=== PATIENT | female | born 1975 | race Caucasian/White ===

== ENCOUNTER 2017-08-27 00:19 | Emergency (ER) | payer MEDICAID ==
[2015-11-09 13:29] VITALS: Wt 71.2 kg
[~2017-08-27 00:19] MED LIST: ADV100/50 INH; ADV250/50 INH; ADVAIR INHALER IH; ALB0.5 INH; ALB17R INH; ALBU8.5H IH; ALBU8.5H11 INH; ALP5 PO; AMLO-101 PO; AMLO-98 PO; AZI250 PO; AZIT500T47 PO; BACDS PO; BENZ-23 PO; CEFU250 PO; CEFU500T10 PO; CELE-1 PO; CEP500 PO; CEPH500C24 PO; CIP500 PO; CIPR-214 PO; CIPR-326 PO; CIPR-344 PO; CIPR-345 PO; CIT20 PO; CITA-141 PO; CLI150 PO; CLIN300C99 PO; CYC10 PO; CYCL-277 PO; CYCL10TA29 PO; DAR100 PO; DIA5 PO; DIAZ-1 PO; DIAZ-308 PO; DICL-195 PO; DOXY150T6 PO; DOXY50SY2 PO; DULO30CA35 PO; ERYT400T73 PO; ESTR1 PO; ESTR1PAT TD; ESZ2 PO; ESZ3PT PO; FAMO20TA28 PO; FURO20TA19 PO; GAB300 PO; HYD2 PO; HYDR-3087 PO; HYDR-318 PO; HYDR-4305 PO; HYDR-4309 PO; HYDR1TAB PO; HYDR2TAB41 PO; HYDR473S4 PO; KET10 PO; LEVO-85 PO; LEVO750T25 PO; LIS5 PO; LISI-347 PO; LISI-355 PO; LISI-362 PO; LISI20TA29 PO; LOR1 PO; LOR10/325 PO; LOR5 PO; LOR5/325 PO; LOR75 PO; MEP50 PO; MEPE50TA29 PO; MEPE50TA32 PO; MET1I IV; METH-543 PO; METHO500 PO; MOME8.8H2 IH; MORIR15 PO; MORPHINE; NAPR-733 PO; NEB5 PO; NEBI5TAB PO; NONE NOW; NOR10 PO; NOR10/325 PO; NOR25 PO; NOR5/325 PO; NOR75/325 PO; ONDA4TAB PO; OXY10 PO; OXYC-375; OXYC-375 PO; OXYC-689 PO; OXYC-717 PO; OXYC-823 PO; OXYC-830; OXYC-865 PO; OXYC-870 PO; OXYC20TA77 PO; OXYC20TA99 PO; OXYC40TA PO; OXYC40TA53 PO; OXYC40TA57 PO; OXYC5TAB38 PO; OXYGEN INH; OXYIR PO; PAIN PILL PO; PAN40 PO; PANT40TA65; PANT40TA65 PO; PER PO; PHEN-530 PO; PHEN120S16 PO; PHEN240S3 PO; PHENA200 PO; POTA-28 PO; PRA20 PO; PRAV10TA45 PO; PRAV20TA66 PO; PRE10 PO; PRE20 PO; PRED20TA6 PO; PREG100C44; PREG100C44 PO; PREG100C45; PREG150C33 PO; PREG50CA48 PO; PRO25 PO; PROAIRPT IH; PROM-110 PO; RAN150 PO; ROBC PO; SILV50CR43 TP; TRA50 PO; TRAM-420 PO; TRAM-627 PO; TRAZ-156 PO; TRAZ150T8 PO; TREXIMET; VILA10TA PO; VILA20TA PO; ZOL5 PO; [UNRECOGNIZED DRUG - CODE] PO; [UNRECOGNIZED DRUG - OTHER] PO; [UNRECOGNIZED DRUG - REMARK]
--- NOTE | 2017-08-27 00:28 | ER Report ---
History and Physical Time Seen By MD: 00:27 HPI/ROS CHIEF COMPLAINT: cough HISTORY OF PRESENT ILLNESS: This is a 42 year old female. She has a cough for about 1 weeks time now. She has pain in the chest when she coughs. Has some sore throat pain as well. Productive cough with sputum. Concerned about pneumonia or bronchitis. Multiple family members have been ill as well. No nausea or vomiting. Less appetite, but still eating and drinking. Body aches and pains. Some subjective fevers/chills. Allergies: Coded Allergies: acetaminophen (Verified Allergy, Severe, 08/27/17) kidney and liver failure amoxicillin (Verified Allergy, Intermediate, HIVES, 08/27/17) ibuprofen (Verified Allergy, Intermediate, HIVES, 08/27/17) latex (Verified Allergy, Intermediate, WELTS, 08/27/17) sulfamethoxazole (Verified Allergy, Mild, 08/27/17) trimethoprim (Verified Allergy, Mild, 08/27/17) Penicillins (Verified Allergy, Unknown, 08/27/17) Uncoded Allergies: ALLERGIC TO ANY TOPICAL PATCHES (Allergy, Intermediate, WELTS, 09/01/10) TAPE (Allergy, Mild, 09/01/10) Home Meds Active Scripts Benzonatate 100 Mg Cap (TESSALON PERLE 100 MG CAP) 100 Mg Capsule, 100 MG PO TID , #20 CAP 0 Refills Prov:KWAME DIAMOND MD 08/27/17 Doxycycline Hyclate (DOXYCYCLINE HYCLATE) 100 Mg Capsule, 100 MG PO BID, #20 CAPSULE 0 Refills Prov:KWAME DIAMOND MD 08/27/17 Methocarbamol (ROBAXIN-750) 750 Mg Tablet, 750 MG PO TID Y for MUSCLE SPASMS, # 30 TAB 0 Refills Prov:KWAME DIAMOND MD 12/05/16 Pregabalin (LYRICA) 50 Mg Capsule, 50 MG PO TID, #90 CAPSULE Prov:RADHA HACKETT MD 01/27/16 Reported Medications Pantoprazole Sodium (PANTOPRAZOLE SODIUM) 40 Mg Tablet.dr, 40 MG PO QDAY, TAB.SR 10/30/16 Furosemide (LASIX) 20 Mg Tablet, 1 TAB PO DAILY, TAB 10/30/16 Vilazodone Hydrochloride (VIIBRYD) 20 Mg Tablet, 40 MG PO DAILY 10/06/16 Eszopiclone (LUNESTA) 3 Mg Tablet, 3 MG PO QHS 10/06/16 Lisinopril (LISINOPRIL) 20 Mg Tablet, 20 MG PO QDAY, TAB 10/06/16 Nebivolol Hcl (BYSTOLIC) 5 Mg Tablet, 5 MG PO QDAY Take one tablet at noon each day. 11/11/15 Amlodipine Besylate (Amlodipine Besylate) 10 Mg Tablet, 1 TAB PO QHS, 0 Refills 03/26/12 Discontinued Scripts Ciprofloxacin Hcl (CIPROFLOXACIN HCL) 500 Mg Tablet, 500 MG PO Q12H, #10 TAB Prov:THIERRYLAMAR DONIS Dayanna GARCIA 03/14/17 Reviewed Nurses Notes: Yes Hx Smoking: Yes (13PPD) Smoking Status: Current: Every Day Smoker Exposure to Second Hand Smoke?: Yes Hx Substance Use Disorder: No Hx Alcohol Use: No Constitutional Vital Sign - Last 24 Hours 08/27/17 08/27/17 08/27/17 00:22 00:34 00:42 Temp 98.2 Pulse 72 69 Resp 14 B/P (MAP) 153/88 (109) 153/88 Pulse Ox 91 89 O2 Delivery Room Air Physical Exam General Appearance: The patient is alert, has no immediate need for airway protection and no current signs of toxicity. Eyes: Pupils equal and round no injection. ENT: Normal oral mucosa. Moist mucous membranes. Posterior oropharynx with erythema, but no exudates. Nasal mucosa with edema and erythema. Tympanic membranes are normal. Neck: Neck is supple and some tenderness right submandibular area, non lymphadenopathy noted. Respiratory: Chest is non tender, lungs are clear to auscultation. Cardiac: regular rate and rhythm Gastrointestinal: Abdomen is soft and non tender, no masses, bowel sounds normal. Musculoskeletal: Extremities have full range of motion. Skin: No rashes or lesions. DIFFERENTIAL DIAGNOSIS: After history and physical exam differential diagnosis was considered for cough with some shortness of breath, concerning for pulmonary infectious process versus viral upper rest or infection or influenza Medical Decision Making Data Points Result Diagram: 08/27/17 0045 08/27/17 0045 Laboratory Hematology Test 08/27/17 00:45 Red Blood Count 4.96 M/uL (4.17-5.56) Mean Corpuscular Volume 88.5 fL (80.0-96.0) Mean Corpuscular Hemoglobin 30.1 pg (26.0-33.0) Mean Corpuscular Hemoglobin Concent 34.1 g/dL (32.0-36.0) Red Cell Distribution Width 15.1 % (11.5-14.5) Mean Platelet Volume 8.7 fL (7.2-11.1) Neutrophils (%) (Auto) 57.6 % (39.4-72.5) Lymphocytes (%) (Auto) 27.6 % (17.6-49.6) Monocytes (%) (Auto) 9.6 % (4.1-12.4) Eosinophils (%) (Auto) 3.8 % (0.4-6.7) Basophils (%) (Auto) 1.4 % (0.3-1.4) Nucleated RBC Relative Count (auto) 0.0 /100WBC Neutrophils # (Auto) 3.8 K/uL (2.0-7.4) Lymphocytes # (Auto) 1.8 K/uL (1.3-3.6) Monocytes # (Auto) 0.6 K/uL (0.3-1.0) Eosinophils # (Auto) 0.2 K/uL (0.0-0.5) Basophils # (Auto) 0.1 K/uL (0.0-0.1) Nucleated RBC Absolute Count (auto) 0.00 K/uL Sodium Level 139 mmol/L (137-145) Potassium Level 3.6 mmol/L (3.5-5.0) Chloride Level 103 mmol/L (98-107) Carbon Dioxide Level 27 mmol/L (22-31) Blood Urea Nitrogen 8 mg/dl (7-18) Creatinine 0.90 mg/dl (0.52-1.04) Glomerular Filtration Rate Calc > 60.0 Random Glucose 90 mg/dl (75-110) Calcium Level 9.4 mg/dl (8.4-10.2) Total Bilirubin 0.3 mg/dl (0.2-1.3) Aspartate Amino Transf (AST/SGOT) 31 U/L (0-35) Alanine Aminotransferase (ALT/SGPT) 84 U/L (0-56) Alkaline Phosphatase 207 U/L (0-126) C-Reactive Protein 1.5 mg/dl (<1.0) Total Protein 7.6 gm/dl (6.3-8.2) Albumin 3.8 g/dl (3.5-5.0) Influenza Virus Type A (PCR) Negative (NEGATIVE) Influenza Virus Type B (PCR) Negative (NEGATIVE) Chemistry Test 08/27/17 00:45 White Blood Count 6.6 k/uL (4.5-11.0) Red Blood Count 4.96 M/uL (4.17-5.56) Hemoglobin 14.9 g/dL (12.0-16.0) Hematocrit 43.9 % (34.0-47.0) Mean Corpuscular Volume 88.5 fL (80.0-96.0) Mean Corpuscular Hemoglobin 30.1 pg (26.0-33.0) Mean Corpuscular Hemoglobin Concent 34.1 g/dL (32.0-36.0) Red Cell Distribution Width 15.1 % (11.5-14.5) Platelet Count 213 K/uL (150-450) Mean Platelet Volume 8.7 fL (7.2-11.1) Neutrophils (%) (Auto) 57.6 % (39.4-72.5) Lymphocytes (%) (Auto) 27.6 % (17.6-49.6) Monocytes (%) (Auto) 9.6 % (4.1-12.4) Eosinophils (%) (Auto) 3.8 % (0.4-6.7) Basophils (%) (Auto) 1.4 % (0.3-1.4) Nucleated RBC Relative Count (auto) 0.0 /100WBC Neutrophils # (Auto) 3.8 K/uL (2.0-7.4) Lymphocytes # (Auto) 1.8 K/uL (1.3-3.6) Monocytes # (Auto) 0.6 K/uL (0.3-1.0) Eosinophils # (Auto) 0.2 K/uL (0.0-0.5) Basophils # (Auto) 0.1 K/uL (0.0-0.1) Nucleated RBC Absolute Count (auto) 0.00 K/uL Glomerular Filtration Rate Calc > 60.0 Calcium Level 9.4 mg/dl (8.4-10.2) Total Bilirubin 0.3 mg/dl (0.2-1.3) Aspartate Amino Transf (AST/SGOT) 31 U/L (0-35) Alanine Aminotransferase (ALT/SGPT) 84 U/L (0-56) Alkaline Phosphatase 207 U/L (0-126) C-Reactive Protein 1.5 mg/dl (<1.0) Total Protein 7.6 gm/dl (6.3-8.2) Albumin 3.8 g/dl (3.5-5.0) Influenza Virus Type A (PCR) Negative (NEGATIVE) Influenza Virus Type B (PCR) Negative (NEGATIVE) EKG/Imaging Imaging CHEST PA AND LATERAL 08/27/2017 1:19 AM. INDICATION: Cough. COMPARISON: 10/07/2016. FINDINGS: Lungs are well-expanded. Mild diffuse bronchial wall thickening, likely at least partially chronic. No focal consolidation. No pneumothorax or pleural effusion. Pulmonary vasculature is unremarkable. Heart size is normal. Unchanged compression deformities in the lower thoracic spine with associated severe kyphosis. Cholecystectomy clips noted. IMPRESSION: Mild airways disease, likely at least partially chronic, though an acute infectious or inflammatory component is not excluded. Report Dictated By: Rodger Burnett MD at 08/27/2017 1:34 AM ED Course/Re-evaluation Clinical Indication for ER IV: IV Access ED Course Imaging with changes consistent with early community acquired pneumonia. Had some desaturation while sleeping, down to 86% on room air. Will start on Doxycycline. Naproxen given for headache. Prescribed benzonatate for cough. Decision to Disposition Date: Aug 27, 2017 Decision to Disposition Time: 02:02 Depart Departure Latest Vital Signs Vital Signs Date Time Temp Pulse Resp B/P (MAP) Pulse Ox O2 Delivery O2 Flow Rate FiO2 08/27/17 00:42 98.2 69 14 153/88 89 Room Air Impression: Primary Impression: Community acquired pneumonia Condition: Improved Disposition: HOME OR SELF-CARE Referrals: MARTIN BAUMANN DO (PCP) New Scripts Benzonatate 100 Mg Cap (TESSALON PERLE 100 MG CAP) 100 Mg Capsule 100 MG PO TID, #20 CAP 0 Refills Prov: KWAME DIAMOND MD 08/27/17 Doxycycline Hyclate (DOXYCYCLINE HYCLATE) 100 Mg Capsule 100 MG PO BID, #20 CAPSULE 0 Refills Prov: KWAME DIAMOND MD 08/27/17 Departure Forms: Home Oxygen, Nebulizer RX Durable Medical Equipment- Oxygen: Oxygen Concentrator, Portable Oxygen Gas Reason for Use/Diagnosis: pneumonia Start Date of the Order: Aug 27, 2017 Dosage or Concentration (if applicable) - LPM: 2 Route of Administration (if applicable): Nasal Cannula Frequency of Use: While Sleeping Duration Home O2 Required: 3 Duration Units: Weeks Room Air Oxygen Saturation: 86 ER Prescribing Physician's Name: Kwame Diamond NPI Numbers for Local ER MDs: Nella [id number] Patient Instructions: Community Acquired Pneumonia (ED) Additional Instructions: Take the antibiotic Doxycycline 100mg twice a day for 10 days. Take the medication Benzonatate 100mg every 8 hours as needed for cough. Oxygen at 2 liters by nasal canula while sleeping. See Dr. Baumann to discuss prescriptions for further oxygen treatment beyond the need while treating your pneumonia. Problem Qualifiers Primary Impression: Community acquired pneumonia Laterality: unspecified laterality Qualified Codes: J18.9 - Pneumonia, unspecified organism KWAME DIAMOND MD Aug 27, 2017 00:28
[2017-08-27] MEDS ORDERED: NS(*) 0.9% 1000 ML BAG 1,000 ML IV ONE (00:35)
[2017-08-27 00:42] VITALS: BP 153/88
[2017-08-27 01:05] LABS: PLATELET COUNT, AUTOMATED 213 K/uL (150-450)
--- NOTE | 2017-08-27 01:41 | RADIOLOGY IMAGING REPORT ---
FACILITY: [facility] PATIENT NAME: Madhuri Mckeon : 1975 MR: [id number] V: [id number] EXAM DATE: ORDERING PHYSICIAN: LOIS DIAMOND TECHNOLOGIST: Location: [facility] - [place] Patient: Madhuri Mckeon : 1975 Visit/Account:[id number] Date of Sevice: 08/27/2017 CHEST PA AND LATERAL 08/27/2017 1:19 AM. INDICATION: Cough. COMPARISON: 10/07/2016. FINDINGS: Lungs are well-expanded. Mild diffuse bronchial wall thickening, likely at least partially chronic. No focal consolidation. No pneumothorax or pleural effusion. Pulmonary vasculature is un remarkable. Heart size is normal. Unchanged compression deformities in the lower thoracic spine wit h associated severe kyphosis. Cholecystectomy clips noted. IMPRESSION: Mild airways disease, likely at least partially chronic, though an acute infectious or in flammatory component is not excluded. Report Dictated By: Rodger Burnett MD at 08/27/2017 1:34 AM Report E-Signed By: Rodger Burnett MD at 08/27/2017 1:37 AM WSN:[id number]
[2017-08-27] MEDS ORDERED: BENZ100C4 PO (02:03)
[2017-08-27] MEDS ORDERED: DOXY-181 PO (02:03)
[2017-08-27] MEDS ORDERED: DOXYCYCLINE HYCL 100 MG TAB TH PO ONE (02:05)
[2017-08-27] MEDS ORDERED: BENZONATATE 100 MG CAP PO ONE (02:05)
[2017-08-27] MEDS ORDERED: NAPROXEN 500 MG TAB PO ONE (02:15)
== END 2017-08-27 03:15 | disposition home or self-care (01) ==
LOC: ER 00:26
DX: J18.9 Pneumonia, unspecified organism (principal)
CPT/HCPCS: 71046; 85025; 86140; 87502; 96360; 96361; 99284; J7030; 82040; 82247; 82310; 82374; 82435; 82565; 82947; 84075; 84132; 84155; 84295; 84450; 84460; 84520

== ENCOUNTER → 2017-10-12 | Outpatient (CLI) | payer MEDICAID ==
[2015-11-09 13:29] VITALS: BMI 30.5
[~2017-10-12] MED LIST changes: +BENZ100C4 PO; +DOXY-181 PO
--- NOTE | 2017-10-12 14:55 | RADIOLOGY IMAGING REPORT ---
[place] [facility] [place]IENT NAME: Madhuri Mckeon : 1975 MR: [id number] V: [id number] EXAM DATE: ORDERING PHYSICIAN: MARTIN BAUAMNN TECHNOLOGIST: Location: [facility] Patient: Madhuri Mckeon : 1975 Visit/Account:[id number] Date of Sevice: 10/12/2017 Exam type: FOOT 2 VIEW LEFT History: Injury two months ago Comparison: November 14, 2016. Findings: There is a tiny radiopaque foreign body projecting just medial to the distal tuft of the distal phala nx of the left great toe. This is seen on the lateral view and appears to be external to the skin. There is no evidence of acute fracture or dislocation. IMPRESSION: 1. No acute osteoarticular abnormality the left foot is seen Report Dictated By: Alysha Peng MD at 10/12/2017 2:48 PM Report E-Signed By: Alysha Peng MD at 10/12/2017 2:52 PM WSN:[email or web address]
== END ==
LOC: RAD 13:44
PROVIDERS: ATTEND Family Medicine
DX: M79.672 Pain in left foot (principal)

== ENCOUNTER → 2017-11-10 | Outpatient (CLI) | payer MEDICAID ==
[2015-11-09 13:29] VITALS: BMI 30.5
[~2017-11-10] MED LIST changes: -OXYC-375; -OXYC-375 PO; +OXYC1TAB78; +OXYC1TAB78 PO
--- NOTE | 2017-11-10 11:24 | RADIOLOGY IMAGING REPORT ---
[place] [facility] [place]: Madhuri Mckeon : 1975 MR: [id number] V: [id number] EXAM DATE: ORDERING PHYSICIAN: MARTIN BAUMANN TECHNOLOGIST: Location: [facility] [place] Patient: Madhuri Mckeon : 1975 Visit/Account:[id number] Date of Sevice: 11/10/2017 ABD SINGLE ORGAN/QUAD/FOLLOWUP, bladder ultrasound HISTORY: Urinary incontinence, right flank pain COMPARISON: None. FINDINGS: The urinary bladder prevoid volume was 100 mL. The post void residual was 34 mL. Bilateral ureteral jets were present. IMPRESSION: Post void bladder residual 34 mL Report Dictated By: Alysha Peng MD at 11/10/2017 11:19 AM Report E-Signed By: Alysha Peng MD at 11/10/2017 11:21 AM WSN:[email or web address]
== END ==
LOC: US 01:39
PROVIDERS: ATTEND Family Medicine
DX: R39.14 Feeling of incomplete bladder emptying (principal)
CPT/HCPCS: 76705

== ENCOUNTER → 2018-01-03 | Outpatient (CLI) | payer MEDICAID ==
[2015-11-09 13:29] VITALS: BMI 30.5
--- NOTE | 2018-01-03 13:08 | RADIOLOGY IMAGING REPORT ---
[place] [facility] [place]IENT NAME: Madhuri Mckeon : 1975 MR: [id number] V: [id number] EXAM DATE: ORDERING PHYSICIAN: LUIS ANTONIO LOFTON TECHNOLOGIST: Location: [facility] Patient: Madhuri Mckeon : 1975 Visit/Account:[id number] Date of Sevice: 01/03/2018 US SINGLE ORGAN HISTORY: Inability to empty bladder COMPARISON: None. FINDINGS: The urinary bladder prevoid volume was 328 mL. The post void residual was 36 mL. Bilateral ureteral jets are present IMPRESSION: 36 mL post void bladder residual Report Dictated By: Alysha Peng MD at 01/03/2018 1:04 PM Report E-Signed By: Alysha Peng MD at 01/03/2018 1:05 PM WSN:[email or web address]
== END ==
LOC: US 11:54
DX: R39.14 Feeling of incomplete bladder emptying (principal)
CPT/HCPCS: 76705

== ENCOUNTER 2018-01-10 11:19 | Emergency (ER) | payer MEDICAID ==
[2015-11-09 13:29] VITALS: Wt 84.4 kg
[~2018-01-10 11:19] MED LIST changes: -TRAZ-156 PO; +TRAZ50TA34 PO
[2018-01-10] MEDS ORDERED: PREG100C44 PO (11:25)
[2018-01-10] MEDS ORDERED: FURO-45 PO (11:25)
--- NOTE | 2018-01-10 11:31 | ER Report ---
History and Physical Time Seen By MD: 11:30 Hx. of Stated Complaint: PT REPORTS L WRIST PAIN HPI/ROS CHIEF COMPLAINT: Left wrist pain HISTORY OF PRESENT ILLNESS: This is a 42-year-old female presents to the emergency department for left wrist pain. Patient states that she tripped and fell backwards over her dog with her left arm outstretched injuring her left wrist. Patient states that she can barely move her wrists, significant pain to the radial side of the wrist up into the forearm. No elbow or shoulder involvement. CMS intact distal to the injury. REVIEW OF SYSTEMS: Respiratory: No cough, no dyspnea. Cardiovascular: No chest pain, no palpitations. Gastrointestinal: No vomiting, no abdominal pain. Musculoskeletal: As above. Allergies: Coded Allergies: acetaminophen (Verified Allergy, Severe, 01/10/18) kidney and liver failure amoxicillin (Verified Allergy, Intermediate, HIVES, 01/10/18) ibuprofen (Verified Allergy, Intermediate, HIVES, 01/10/18) latex (Verified Allergy, Intermediate, WELTS, 01/10/18) sulfamethoxazole (Verified Allergy, Mild, 01/10/18) trimethoprim (Verified Allergy, Mild, 01/10/18) Penicillins (Verified Allergy, Unknown, 01/10/18) Uncoded Allergies: ALLERGIC TO ANY TOPICAL PATCHES (Allergy, Intermediate, WELTS, 09/01/10) TAPE (Allergy, Mild, 09/01/10) Home Meds Active Scripts Metaxalone (SKELAXIN) 800 Mg Tablet, 800 MG PO PRN, #12 TAB Prov:LUCRETIA WHYTE TRUST MANAGER ASSISTANT-BC 01/10/18 Methocarbamol (ROBAXIN-750) 750 Mg Tablet, 750 MG PO TID Y for MUSCLE SPASMS, # 30 TAB 0 Refills Prov:LOIS DIAMOND MD 12/05/16 Reported Medications Furosemide (FUROSEMIDE) 20 Mg Tablet, 1 TAB PO Q8H, TAB 01/10/18 Pregabalin (LYRICA) 100 Mg Capsule, 100 MG PO TID, CAPSULE 01/10/18 Pantoprazole Sodium (PANTOPRAZOLE SODIUM) 40 Mg Tablet.dr, 40 MG PO QDAY, TAB.SR 10/30/16 Vilazodone Hydrochloride (VIIBRYD) 20 Mg Tablet, 40 MG PO DAILY 10/06/16 Eszopiclone (LUNESTA) 3 Mg Tablet, 3 MG PO QHS 10/06/16 Lisinopril (LISINOPRIL) 20 Mg Tablet, 20 MG PO QDAY, TAB 10/06/16 Nebivolol Hcl (BYSTOLIC) 5 Mg Tablet, 5 MG PO QDAY Take one tablet at noon each day. 11/11/15 Amlodipine Besylate (Amlodipine Besylate) 10 Mg Tablet, 1 TAB PO QHS, 0 Refills 03/26/12 Discontinued Reported Medications Furosemide (LASIX) 20 Mg Tablet, 1 TAB PO DAILY, TAB 10/30/16 Discontinued Scripts Benzonatate 100 Mg Cap (TESSALON PERLE 100 MG CAP) 100 Mg Capsule, 100 MG PO TID , #20 CAP 0 Refills Prov:LOIS DIAMOND MD 08/27/17 Doxycycline Hyclate (DOXYCYCLINE HYCLATE) 100 Mg Capsule, 100 MG PO BID, #20 CAPSULE 0 Refills Prov:LOIS DIAMOND MD 08/27/17 Pregabalin (LYRICA) 50 Mg Capsule, 50 MG PO TID, #90 CAPSULE Prov:RADHA HACKETT MD 01/27/16 Past Medical/Surgical History Patient has a past medical and surgical history of migraines, "chronic tachycardia", angina, hypertension, hypercholesterolemia, asthma, pneumonia, GERD, cervical cancer with excision, urinary tract infections, bursitis, fibromyalgia, arthritis, multiple fractures, has full dentures, wears contacts and glasses, depression, anxiety, basal cell skin cancer excision, tubal ligation, multiple orthopedic surgeries. Reviewed Nurses Notes: Yes Hx Smoking: Yes (1/3PPD) Smoking Status: Current: Every Day Smoker Exposure to Second Hand Smoke?: Yes Hx Substance Use Disorder: No Hx Alcohol Use: No Constitutional Vital Sign - Last 24 Hours 01/10/18 01/10/18 01/10/18 11:23 11:25 13:05 Temp 98.0 Pulse 87 87 Resp 16 B/P (MAP) 122/67 (85) 122/67 115/76 (89) Pulse Ox 100 93 O2 Delivery Room Air Physical Exam General Appearance: The patient is alert, has no immediate need for airway protection and no current signs of toxicity. Eyes: Pupils equal and round no injection. Respiratory: Chest is non tender, lungs are clear to auscultation. Cardiac: regular rate and rhythm. Gastrointestinal: Abdomen is soft and non tender, no masses, bowel sounds normal. Musculoskeletal: Neck: Neck is supple and non tender. Extremities pain to the left forearm, left wrist and hand with light palpation. CMS intact distal to the injury. No deformities, crepitus or dislocations. Skin: No rashes or lesions. DIFFERENTIAL DIAGNOSIS: After history and physical exam differential diagnosis was considered for dislocation, fracture and contusion. Medical Decision Making EKG/Imaging Imaging Location: [facility] [place] Patient: Madhuri Mckeon : 1975 Visit/Account:[id number] Date of Sevice: 01/10/2018 EXAMINATION: Left wrist radiographs 3 views HISTORY: Fall last night. Pain to forearm and wrist. COMPARISON: None. FINDINGS: PA, lateral and oblique views of the left wrist are obtained. Bones: Slightly impacted acute transverse fracture in the distal left radial metaphysis. Joint spaces: Negative. Hardware: None. Soft tissues: Mild soft tissue swelling about the distal forearm/wrist. IMPRESSION: Acute fracture of the distal left radial metaphysis. Report Dictated By: David Lawler MD at 01/10/2018 12:18 PM Report E-Signed By: David Lawler MD at 01/10/2018 12:20 PM WSN:[id number] Location: [facility] [place] Patient: Madhuri Mckeon : 1975 Visit/Account:[id number] Date of : 01/10/2018 EXAMINATION: Left forearm radiographs 2 views HISTORY: Pain to forearm and wrist from fall. COMPARISON: None. FINDINGS: AP and lateral views of the left forearm are obtained. Bones: Acute transverse fracture of the distal metaphysis of the radius. Joint spaces: Negative. Hardware: None. Soft tissues: Mild soft tissue swelling at the distal forearm/wrist. IMPRESSION: Acute fracture of the metaphysis of the distal left radius. Report Dictated By: David Lawler MD at 01/10/2018 12:21 PM Report E-Signed By: David Lawler MD at 01/10/2018 12:23 PM WSN:[id number] ED Course/Re-evaluation ED Course The patient was mid to room. A history and physical were obtained. Differential diagnoses were considered. An x-ray of the left forearm and left wrist were obtained. X-ray showing acute fracture of the distal radius, nondisplaced. Patient was placed in an Ortho-Glass splint given a sling a prescription for Skelaxin one naproxen in the ER at her request, and instructed to follow-up with [facility] within 5 days. Patient had no other questions or concerns at this time and discharged home. Decision to Disposition Date: Jan 10, 2018 Decision to Disposition Time: 12:59 Depart Departure Latest Vital Signs Vital Signs Date Time Temp Pulse Resp B/P (MAP) Pulse Ox O2 Delivery O2 Flow Rate FiO2 01/10/18 13:05 87 115/76 (89) 93 01/10/18 11:25 98.0 16 Room Air Impression: Primary Impression: Fracture of left wrist Condition: Improved Disposition: HOME OR SELF-CARE Referrals: MARTIN BAUMANN DO (PCP) [facility] 5 Days New Scripts Metaxalone (SKELAXIN) 800 Mg Tablet 800 MG PO PRN, #12 TAB Prov: LUCRETIA WHYTE-BAL 01/10/18 Patient Instructions: Wrist Fracture in Adults (ED) Additional Instructions: Drink plenty of water. Get plenty of rest. Keep the splint on until he follows with [facility]. Used a sling for comfort. Apply ice every 2-3 hours, 5-6 times a day for approximately 20 minutes at a time. Keep the arm elevated this will help with pain. Continue taking her current medications. Take the Skelaxin as directed. Return to the ER for any other concerns or worsening symptoms. Problem Qualifiers Primary Impression: Fracture of left wrist Encounter type: initial encounter Fracture type: closed Qualified Codes: S62.102A - Fracture of unspecified carpal bone, left wrist, initial encounter for closed fracture LUCRETIA WHYTE-BAL Jan 10, 2018 11:31
--- NOTE | 2018-01-10 12:25 | RADIOLOGY IMAGING REPORT ---
FACILITY: [facility] PATIENT NAME: Madhuri Mckeon : 1975 MR: [id number] V: [id number] EXAM DATE: ORDERING PHYSICIAN: LUCRETIA WHYTE TECHNOLOGIST: Location: [facility] - [place] Patient: Madhuri Mckeon : 1975 Visit/Account:[id number] Date of Sevice: 01/10/2018 EXAMINATION: Left wrist radiographs 3 views HISTORY: Fall last night. Pain to forearm and wrist. COMPARISON: None. FINDINGS: PA, lateral and oblique views of the left wrist are obtained. Bones: Slightly impacted acute transverse fracture in the distal left radial metaphysis. Joint spaces: Negative. Hardware: None. Soft tissues: Mild soft tissue swelling about the distal forearm/wrist. IMPRESSION: Acute fracture of the distal left radial metaphysis. Report Dictated By: David Lawler MD at 01/10/2018 12:18 PM Report E-Signed By: David Lawler MD at 01/10/2018 12:20 PM WSN:[id number]
--- NOTE | 2018-01-10 12:28 | RADIOLOGY IMAGING REPORT ---
FACILITY: [facility] - [place] PATIENT NAME: Madhuri Mckeon : 1975 MR: [id number] V: [id number] EXAM DATE: ORDERING PHYSICIAN: LUCRETIA WHYTE TECHNOLOGIST: Location: [facility] Patient: Madhuri Mckeon : 1975 Visit/Account:[id number] Date of Sevice: 01/10/2018 EXAMINATION: Left forearm radiographs 2 views HISTORY: Pain to forearm and wrist from fall. COMPARISON: None. FINDINGS: AP and lateral views of the left forearm are obtained. Bones: Acute transverse fracture of the distal metaphysis of the radius. Joint spaces: Negative. Hardware: None. Soft tissues: Mild soft tissue swelling at the distal forearm/wrist. IMPRESSION: Acute fracture of the metaphysis of the distal left radius. Report Dictated By: David Lawler MD at 01/10/2018 12:21 PM Report E-Signed By: David Lawler MD at 01/10/2018 12:23 PM WSN:[id number]
[2018-01-10] MEDS ORDERED: META800T18 PO (12:47)
[2018-01-10] MEDS ORDERED: NAPROXEN 500 MG TAB PO ONE (13:00)
[2018-01-10 13:05] VITALS: BP 115/76
== END 2018-01-10 13:19 | disposition home or self-care (01) ==
LOC: ER 11:34
DX: S52.502A Unspecified fracture of the lower end of left radius, initial encounter for closed fracture (principal); W01.0XXA Fall on same level from slipping, tripping and stumbling without subsequent striking against object, initial encounter
CPT/HCPCS: 29125; 73090; 73110; 99284; A4565

== ENCOUNTER → 2018-01-31 | Outpatient (CLI) | payer MEDICAID ==
[2015-11-09 13:29] VITALS: BMI 30.5
[~2018-01-31] MED LIST changes: +FURO-45 PO; +META800T18 PO
--- NOTE | 2018-01-31 15:22 | RADIOLOGY IMAGING REPORT ---
FACILITY: [facility] [place] PATIENT NAME: Madhuri Mckeon : 1975 MR: [id number] V: [id number] EXAM DATE: ORDERING PHYSICIAN: MARTIN BAUMANN TECHNOLOGIST: Location: [facility] [place] Patient: Madhuri Mckeon : 1975 Visit/Account:[id number] Date of Sevice: 01/31/2018 Exam type: FOREARM LEFT History: ] Fracture of distal left radius Comparison: January 10, 2018. Findings: Again is a comminuted impacted fracture through the distal left radial metaphysis and epiphysis with extension to the articular surface. There is dorsal angulation at the fracture site that appears sli ghtly more prominent when compared to the prior study IMPRESSION: 1. Comminuted impacted fracture to the distal left radius with extension to the articular surface ag ain seen. There is dorsal angulation at the fracture site which is slightly more prominent when comp ared to the prior study Report Dictated By: Alysha Peng MD at 01/31/2018 3:15 PM Report E-Signed By: Alysha Peng MD at 01/31/2018 3:18 PM WSN:[email or web address]
== END ==
LOC: RAD 13:36
PROVIDERS: ATTEND Family Medicine
DX: S52.502A Unspecified fracture of the lower end of left radius, initial encounter for closed fracture (principal)

== ENCOUNTER 2018-02-03 10:20 | Emergency (ER) | payer MEDICAID ==
[2015-11-09 13:29] VITALS: Wt 85.7 kg
--- NOTE | 2018-02-03 12:25 | RADIOLOGY IMAGING REPORT ---
FACILITY: [facility] [place] PATIENT NAME: Madhuri Mckeon : 1975 MR: [id number] V: [id number] EXAM DATE: ORDERING PHYSICIAN: ALEXANDER CABRERA TECHNOLOGIST: [place] [facility] [place] Madhuri Mckeon : 1975 Visit/Account:[id number] Date of Sevice: 02/03/2018 WRIST LEFT 2 VIEW Indication: Wrist pain. Distal radius fracture. Comparison: 01/10/2018 Findings: 2 views of the left wrist are obtained portably. Transverse distal left radius fracture is again iden tified. There is increased impaction at the fracture site and increased dorsal inclination of the dis paulino radius articular surface when compared to the prior study. Correlate clinically. There is a suspe cted fracture component which extends into the radiocarpal joint as well. No ulnar styloid fracture s een. Carpal alignment is intact. There is soft tissue swelling about the wrist. IMPRESSION: 1. Comminuted distal left radial metaphysis fracture with increased impaction and dorsal inclination of the distal radius articular surface since 01/10/2018. 2. Soft tissue swelling. Report Dictated By: Tevin Willams at 02/03/2018 12:17 PM Report E-Signed By: Tevin Willams at 02/03/2018 12:22 PM WSN:[id number]
[2018-02-03 12:30] VITALS: BP 113/84
--- NOTE | 2018-02-03 13:03 | ER Report ---
History and Physical Time Seen By MD: 10:30 Hx. of Stated Complaint: PT PRESENTS WITH HX OF WRIST FX 01/09 WAS SEEN HERE AND SPLINTED, SECOND CAST PLACED 01/31 BTY PMD. PT NOW HAVING PAIN AND SWELLING AND HER MEDS ARE NOT WORKING HPI/ROS 42-year-old female with the chief complaint of cast discomfort in her left upper extremity. She sustained a distal radius fracture on January 10 after she tripped over her dog. The fracture has been managed by her primary care physician. She states that she has increased pain and swelling beneath the cast , and is requesting that the cast removed. She has a follow-up appointment with the local orthopedic group next week. She denies pain or numbness in her hand. She states that the pain is under the cast. She also reports that the fracture has worsened with the cast in place which is why she was referred by her primary care physician to the orthopedic surgeons. She denies any new trauma. She has no other complaints. Remainder of the 14 system rev: Yes Allergies: Coded Allergies: acetaminophen (Verified Allergy, Severe, 02/03/18) kidney and liver failure amoxicillin (Verified Allergy, Intermediate, HIVES, 02/03/18) ibuprofen (Verified Allergy, Intermediate, HIVES, 02/03/18) latex (Verified Allergy, Intermediate, WELTS, 02/03/18) sulfamethoxazole (Verified Allergy, Mild, 02/03/18) trimethoprim (Verified Allergy, Mild, 02/03/18) Penicillins (Verified Allergy, Unknown, 02/03/18) Uncoded Allergies: ALLERGIC TO ANY TOPICAL PATCHES (Allergy, Intermediate, WELTS, 09/01/10) TAPE (Allergy, Mild, 09/01/10) Home Meds Active Scripts Metaxalone (SKELAXIN) 800 Mg Tablet, 800 MG PO PRN, #12 TAB Prov:LUCRETIA WHYTE STUDENT [employer]CIAL [employer] MANAGER-BC 01/10/18 Methocarbamol (ROBAXIN-750) 750 Mg Tablet, 750 MG PO TID Y for MUSCLE SPASMS, # 30 TAB 0 Refills Prov:LOIS DIAMOND MD 12/05/16 Reported Medications Furosemide (FUROSEMIDE) 20 Mg Tablet, 1 TAB PO Q8H, TAB 01/10/18 Pregabalin (LYRICA) 100 Mg Capsule, 100 MG PO TID, CAPSULE 01/10/18 Pantoprazole Sodium (PANTOPRAZOLE SODIUM) 40 Mg Tablet.dr, 40 MG PO QDAY, TAB.SR 10/30/16 Vilazodone Hydrochloride (VIIBRYD) 20 Mg Tablet, 40 MG PO DAILY 10/06/16 Eszopiclone (LUNESTA) 3 Mg Tablet, 3 MG PO QHS 10/06/16 Lisinopril (LISINOPRIL) 20 Mg Tablet, 20 MG PO QDAY, TAB 10/06/16 Nebivolol Hcl (BYSTOLIC) 5 Mg Tablet, 5 MG PO QDAY Take one tablet at noon each day. 11/11/15 Amlodipine Besylate (Amlodipine Besylate) 10 Mg Tablet, 1 TAB PO QHS, 0 Refills 03/26/12 Reviewed Nurses Notes: Yes Old Medical Records Reviewed: Yes Hx Smoking: Yes (3PPD) Smoking Status: Current: Every Day Smoker Exposure to Second Hand Smoke?: Yes Hx Substance Use Disorder: No Hx Alcohol Use: No Constitutional Vital Sign - Last 24 Hours 02/03/18 10:26 Temp 98.3 Pulse 77 Resp 20 B/P (MAP) 129/81 Pulse Ox 90 O2 Delivery Room Air Physical Exam General Appearance: The patient is alert, has no immediate need for airway protection and no current signs of toxicity. Eyes: Pupils equal and round no injection. Respiratory: Chest is non tender, lungs are clear to auscultation. Cardiac: regular rate and rhythm Extremities: There is mild swelling and TTP of the left distal radius. She is n/ v in tact both before and after cast was removed as well as after the velcro splint was placed Skin: No rashes or lesions. DIFFERENTIAL DIAGNOSIS: After history and physical exam differential diagnosis was considered for worsening fracture, new fracture, compartment syndrome Medical Decision Making EKG/Imaging Imaging X-ray: left wrist was obtained. I viewed the images myself on the PACS system. My interpretation of the images is: Impacted fracture of the distal radius. The radiologist interpretation had no clinically significant variation from this interpretation. ED Course/Re-evaluation ED Course 42-year-old female who sustained a fracture of the distal radius on January 09. She has been managed by her primary care physician but was sent to the emergency department today after complaining of pain from her cast. The cast was removed by me, and I inspected her extremity for any evidence of compartment syndrome. There is no compartment syndrome and no tenting of the skin from an underlying fracture. She was neurovascularly intact multiple times on exam. I did explain to her that the fracture has worsened since the initial injury. Again she denies any additional trauma. I placed her in a left wrist Velcro splint. She has follow-up with the primary bone and joint orthopedic surgeons in 4 days. Decision to Disposition Date: Feb 03, 2018 Decision to Disposition Time: 13:00 Depart Departure Latest Vital Signs Vital Signs Date Time Temp Pulse Resp B/P (MAP) Pulse Ox O2 Delivery O2 Flow Rate FiO2 02/03/18 10:26 98.3 77 20 129/81 90 Room Air Impression: Primary Impression: Cast discomfort Condition: Improved Disposition: HOME OR SELF-CARE Referrals: MARTIN BAUMANN DO (PCP) Patient Instructions: Splint Care (ED) ALEXANDER CABRERA MD Feb 03, 2018 13:03
== END 2018-02-03 13:18 | disposition home or self-care (01) ==
LOC: ER 10:25
DX: M25.532 Pain in left wrist (principal)
CPT/HCPCS: 73100; 99283; L3908

== ENCOUNTER 2018-05-23 10:43 | Emergency (ER) | payer MEDICAID ==
[2015-11-09 13:29] VITALS: Wt 86.2 kg
[~2018-05-23 10:43] MED LIST changes: -HYDR-4305 PO; -HYDR-4309 PO; +HYDR-627 PO; +HYDR-653 PO
[2018-05-23 10:52] VITALS: BP 134/64
[2018-05-23] MEDS ORDERED: POTA99TA6 PO (10:52)
[2018-05-23] MEDS ORDERED: OXYC-823 PO (10:52)
[2018-05-23] MEDS ORDERED: MIRT-17 PO (10:52)
--- NOTE | 2018-05-23 11:01 | ER Report ---
History and Physical Time Seen By MD: 11:01 Hx. of Stated Complaint: COUGH X 6 DAYS, PROGRESSED FROM UPPER RESPIRATORY TO CHEST, PRODUCTIVE OF YELLOW PHLEGM. HPI/ROS CHIEF COMPLAINT: Cough HISTORY OF PRESENT ILLNESS: This is a 43-year-old female presents to the emergency department for a cough. Patient states that the last 6 days or so she had an upper respiratory infection, sinus headache sinus pain, since then the symptoms have begun to resolve and her sinuses and now she has chest congestion exertional dyspnea and a semi-productive cough. No fevers or chills. No nausea vomiting. No diarrhea. REVIEW OF SYSTEMS: Constitutional: No fever, no chills. Eyes: No discharge. ENT: No sore throat. Cardiovascular: No chest pain, no palpitations. Respiratory: As above. Gastrointestinal: No abdominal pain, no vomiting. Genitourinary: No hematuria. Musculoskeletal: No back pain. Skin: No rashes. Neurological: No headache. Allergies: Coded Allergies: acetaminophen (Verified Allergy, Severe, 02/03/18) kidney and liver failure amoxicillin (Verified Allergy, Intermediate, HIVES, 02/03/18) ibuprofen (Verified Allergy, Intermediate, HIVES, 02/03/18) latex (Verified Allergy, Intermediate, WELTS, 02/03/18) sulfamethoxazole (Verified Allergy, Mild, 02/03/18) trimethoprim (Verified Allergy, Mild, 02/03/18) Penicillins (Verified Allergy, Unknown, 02/03/18) Uncoded Allergies: ALLERGIC TO ANY TOPICAL PATCHES (Allergy, Intermediate, WELTS, 09/01/10) TAPE (Allergy, Mild, 09/01/10) Home Meds Active Scripts Prednisone (PREDNISONE) 20 Mg Tablet, 20 MG PO BID, #10 TAB 0 Refills Prov:LUCRETIA WHYTEP-BC 05/23/18 Albuterol Sulfate 90 Mcg/Act (PROAIR HFA 90 MCG/ACT) 8.5 Gm Hfa.aer.ad, 1-2 PUFF IH 3-4XD, #1 INHALER 0 Refills Prov:LUCRETIA WHYTE YOUNG ADULT LIBRARIAN-BC 05/23/18 Benzonatate (BENZONATATE) 200 Mg Capsule, 200 MG PO TID PRN for COUGH, #15 CAP 0 Refills Prov:LUCRETIA WHYTE [facility] 05/23/18 Methocarbamol (ROBAXIN-750) 750 Mg Tablet, 750 MG PO TID PRN for MUSCLE SPASMS, #30 TAB 0 Refills Prov:LOIS DIAMOND MD 12/05/16 Reported Medications Oxycodone Hcl (OXYCONTIN) 10 Mg Tab.er.12h, 10 MG PO, TAB 05/23/18 Mirtazapine (REMERON) 15 Mg Tab.rapdis, 15 MG PO 05/23/18 Potassium Gluconate (POTASSIUM) 99 Mg Tablet, PO 05/23/18 Furosemide (FUROSEMIDE) 20 Mg Tablet, 1 TAB PO Q8H, TAB 01/10/18 Pregabalin (LYRICA) 100 Mg Capsule, 100 MG PO TID, CAPSULE 01/10/18 Pantoprazole Sodium (PANTOPRAZOLE SODIUM) 40 Mg Tablet.dr, 40 MG PO QDAY, TAB.SR 10/30/16 Vilazodone Hydrochloride (VIIBRYD) 20 Mg Tablet, 40 MG PO DAILY 10/06/16 Lisinopril (LISINOPRIL) 20 Mg Tablet, 20 MG PO QDAY, TAB 10/06/16 Nebivolol Hcl (BYSTOLIC) 5 Mg Tablet, 5 MG PO QDAY Take one tablet at noon each day. 11/11/15 Amlodipine Besylate (Amlodipine Besylate) 10 Mg Tablet, 1 TAB PO QHS, 0 Refills 03/26/12 Discontinued Reported Medications Eszopiclone (LUNESTA) 3 Mg Tablet, 3 MG PO QHS 10/06/16 Discontinued Scripts Metaxalone (SKELAXIN) 800 Mg Tablet, 800 MG PO PRN, #12 TAB Prov:LUCRETIA WHYTE [facility]- 01/10/18 Past Medical/Surgical History Patient has a past medical and surgical history of migraines, "chronic tachycardia", angina, hypertension, hypercholesterolemia, asthma, pneumonia, GERD, cervical cancer with excision, urinary tract infections, bursitis, fibromyalgia, arthritis, multiple fractures, has full dentures, wears contacts and glasses, depression, anxiety, basal cell skin cancer excision, tubal ligation, multiple orthopedic surgeries. Reviewed Nurses Notes: Yes Hx Smoking: Yes (13PPD) Smoking Status: Current: Every Day Smoker Exposure to Second Hand Smoke?: Yes Hx Substance Use Disorder: No Hx Alcohol Use: No Constitutional Vital Sign - Last 24 Hours 11/20/18 11/20/18 11/20/18 10:52 11:21 12:14 Temp 99.6 Pulse 92 78 81 Resp 20 14 14 B/P (MAP) 134/64 Pulse Ox 92 O2 Delivery Room Air Physical Exam General Appearance: The patient is alert, has no immediate need for airway protection and no signs of toxicity. Eyes: Pupils equal and round no pallor or injection. ENT, Mouth: Mucous membranes are moist. Respiratory: Diminished throughout, no adventitious lung sounds. Cardiovascular: Regular rate and rhythm, no murmurs, clicks or rubs. Gastrointestinal: Abdomen is soft and non tender, no masses, bowel sounds normal. Neurological: Alert and oriented 4. Moving all extremities. Following all commands. No focal neuro deficits. Skin: Warm and dry, no rashes. Musculoskeletal: Neck is supple non tender. Extremities are nontender, nonswollen and have full range of motion. DIFFERENTIAL DIAGNOSIS: After history and physical exam differential diagnosis was considered for shortness of breath including but not limited to pulmonary infectious process, COPD, asthma, pulmonary embolus and congestive heart failure. Medical Decision Making Data Points Result Diagram: 05/23/18 1104 05/23/18 1104 Laboratory Hematology Test 05/23/18 11:04 Red Blood Count 4.77 M/uL (4.17-5.56) Mean Corpuscular Volume 89.8 fL (80.0-96.0) Mean Corpuscular Hemoglobin 30.6 pg (26.0-33.0) Mean Corpuscular Hemoglobin Concent 34.1 g/dL (32.0-36.0) Red Cell Distribution Width 15.3 % (11.5-14.5) Mean Platelet Volume 8.4 fL (7.2-11.1) Neutrophils (%) (Auto) 70.9 % (39.4-72.5) Lymphocytes (%) (Auto) 19.2 % (17.6-49.6) Monocytes (%) (Auto) 4.7 % (4.1-12.4) Eosinophils (%) (Auto) 4.0 % (0.4-6.7) Basophils (%) (Auto) 1.2 % (0.3-1.4) Nucleated RBC Relative Count (auto) 0.0 /100WBC Neutrophils # (Auto) 5.6 K/uL (2.0-7.4) Lymphocytes # (Auto) 1.5 K/uL (1.3-3.6) Monocytes # (Auto) 0.4 K/uL (0.3-1.0) Eosinophils # (Auto) 0.3 K/uL (0.0-0.5) Basophils # (Auto) 0.1 K/uL (0.0-0.1) Nucleated RBC Absolute Count (auto) 0.00 K/uL Sodium Level 140 mmol/L (137-145) Potassium Level 4.6 mmol/L (3.5-5.0) Chloride Level 109 mmol/L (98-107) Carbon Dioxide Level 27 mmol/L (22-31) Blood Urea Nitrogen 12 mg/dl (7-18) Creatinine 1.00 mg/dl (0.52-1.04) Glomerular Filtration Rate Calc 60.0 Random Glucose 111 mg/dl (75-110) Calcium Level 9.3 mg/dl (8.4-10.2) Total Bilirubin 0.3 mg/dl (0.2-1.3) Aspartate Amino Transf (AST/SGOT) 18 U/L (0-35) Alanine Aminotransferase (ALT/SGPT) 40 U/L (0-56) Alkaline Phosphatase 158 U/L (0-126) Total Protein 7.1 g/dl (6.3-8.2) Albumin 3.5 g/dl (3.5-5.0) Chemistry Test 05/23/18 11:04 White Blood Count 7.9 k/uL (4.5-11.0) Red Blood Count 4.77 M/uL (4.17-5.56) Hemoglobin 14.6 g/dL (12.0-16.0) Hematocrit 42.8 % (34.0-47.0) Mean Corpuscular Volume 89.8 fL (80.0-96.0) Mean Corpuscular Hemoglobin 30.6 pg (26.0-33.0) Mean Corpuscular Hemoglobin Concent 34.1 g/dL (32.0-36.0) Red Cell Distribution Width 15.3 % (11.5-14.5) Platelet Count 252 K/uL (150-450) Mean Platelet Volume 8.4 fL (7.2-11.1) Neutrophils (%) (Auto) 70.9 % (39.4-72.5) Lymphocytes (%) (Auto) 19.2 % (17.6-49.6) Monocytes (%) (Auto) 4.7 % (4.1-12.4) Eosinophils (%) (Auto) 4.0 % (0.4-6.7) Basophils (%) (Auto) 1.2 % (0.3-1.4) Nucleated RBC Relative Count (auto) 0.0 /100WBC Neutrophils # (Auto) 5.6 K/uL (2.0-7.4) Lymphocytes # (Auto) 1.5 K/uL (1.3-3.6) Monocytes # (Auto) 0.4 K/uL (0.3-1.0) Eosinophils # (Auto) 0.3 K/uL (0.0-0.5) Basophils # (Auto) 0.1 K/uL (0.0-0.1) Nucleated RBC Absolute Count (auto) 0.00 K/uL Glomerular Filtration Rate Calc 60.0 Calcium Level 9.3 mg/dl (8.4-10.2) Total Bilirubin 0.3 mg/dl (0.2-1.3) Aspartate Amino Transf (AST/SGOT) 18 U/L (0-35) Alanine Aminotransferase (ALT/SGPT) 40 U/L (0-56) Alkaline Phosphatase 158 U/L (0-126) Total Protein 7.1 g/dl (6.3-8.2) Albumin 3.5 g/dl (3.5-5.0) EKG/Imaging Imaging [place] [facility] [place] Patient: Madhuri Mckeon : 1975 Visit/Account:[id number] Date of Sevice: 05/23/2018 Exam type: CHEST PA AND LAT History: productive cough Comparison: August 27, 2017. Findings: Mild diffuse chronic peribronchial thickening is again noted. There is no evidence of lobar infiltrates, pleural effusions or pulmonary edema. There is an increased AP diameter chest which can be seen with COPD. Cardiac silhouette is normal in size. There is diffuse osteopenia of the visualized bones and a severe kyphosis in the lower thoracic spine secondary to multiple chronic compression fractures that appear similar to the prior study. Surgical clips identified in the right upper quadrant of the abdomen IMPRESSION: 1. Chronic peribronchial thickening noted bilaterally although no evidence of acute pulmonary consolidation Increased AP diameter chest which can be seen with COPD Report Dictated By: Alysha Peng MD at 05/23/2018 12:13 PM Report E-Signed By: Alysha Peng MD at 05/23/2018 12:16 PM WSN:[id number] ED Course/Re-evaluation Clinical Indication for ER IV: Hydration, IV Access ED Course The patient was admitted to a room. A history and physical were obtained. Differential diagnoses were considered. An IV was started. A CBC, CMP and 1 L normal saline bolus were given. Lab studies unremarkable. Two-view chest x-ray negative for any acute cardiopulmonary process. Patient was given 2 DuoNeb's. Patient states feeling mildly better after the treatments. I did review the laboratory studies and chest x-ray with the patient. I did tell her this is likely a viral illness that will pass. I did however recommend following up with her primary care provider next week for reevaluation. The patient expressed understanding.She was given an Rx for Prednisone, albuterol inhaler and benzonatate. Decision to Disposition Date: May 23, 2018 Decision to Disposition Time: 12:35 Depart Departure Latest Vital Signs Vital Signs Date Time Temp Pulse Resp B/P (MAP) Pulse Ox O2 Delivery O2 Flow Rate FiO2 05/23/18 12:14 81 14 05/23/18 10:52 99.6 134/64 92 Room Air Impression: Primary Impression: Cough Condition: Improved Disposition: HOME OR SELF-CARE Referrals: MARTIN BAUMANN DO (PCP) New Scripts Prednisone (PREDNISONE) 20 Mg Tablet 20 MG PO BID, #10 TAB 0 Refills Prov: LUCRETIA WHYTE [facility] 05/23/18 Albuterol Sulfate 90 Mcg/Act (PROAIR HFA 90 MCG/ACT) 8.5 Gm Hfa.aer.ad 1-2 PUFF IH 3-4XD, #1 INHALER 0 Refills Prov: LUCRETIA WHYTE YOU[employer] ADULT LIBRARIAN-BC 05/23/18 Benzonatate (BENZONATATE) 200 Mg Capsule 200 MG PO TID PRN for COUGH, #15 CAP 0 Refills Prov: LUCRETIA WHYTE 05/23/18 Patient Instructions: Acute Cough (ED) Additional Instructions: No concerning findings today, blood work and chest X-ray look good. Be sure to drink plenty of fluids. Call your primary care providers office and schedule a follow up appointment for next week. Take the benzonatate for your cough. Take the prednisone as directed. Get plenty of rest. Return to the ED for any other concerns or worsening symptoms. LUCRETIA WHYTE- May 23, 2018 11:01
[2018-05-23] MEDS ORDERED: NS(*) 0.9% 1000 ML BAG 1,000 ML IV ONE (11:07)
[2018-05-23] MEDS ORDERED: ALBUTEROL/IPRATROPIUM 3 ML NEB NEB ONE ×2 (11:10→12:05)
[2018-05-23 11:18] LABS: PLATELET COUNT, AUTOMATED 252 K/uL (150-450)
[2018-05-23] MEDS ORDERED: BENZ200C15 PO (12:08)
[2018-05-23] MEDS ORDERED: ALBU8.5H IH (12:08)
--- NOTE | 2018-05-23 12:20 | RADIOLOGY IMAGING REPORT ---
FACILITY: [facility] - [place] PATIENT NAME: Madhuri Mckeon : 1975 MR: [id number] V: [id number] EXAM DATE: ORDERING PHYSICIAN: LUCRETIA WHYTE TECHNOLOGIST: Location: [facility] - [place] Patient: Madhuri Mckeon : 1975 Visit/Account:[id number] Date of Sevice: 05/23/2018 Exam type: CHEST PA AND LAT History: productive cough Comparison: August 27, 2017. Findings: Mild diffuse chronic peribronchial thickening is again noted. There is no evidence of lobar infiltra cathleen, pleural effusions or pulmonary edema. There is an increased AP diameter chest which can be seen with COPD. Cardiac silhouette is normal in size. There is diffuse osteopenia of the visualized bon es and a severe kyphosis in the lower thoracic spine secondary to multiple chronic compression fractu res that appear similar to the prior study. Surgical clips identified in the right upper quadrant of the abdomen IMPRESSION: 1. Chronic peribronchial thickening noted bilaterally although no evidence of acute pulmonary consol idation Increased AP diameter chest which can be seen with COPD Report Dictated By: Alysha Peng MD at 05/23/2018 12:13 PM Report E-Signed By: Alysha Peng MD at 05/23/2018 12:16 PM WSN:[email or web address]
[2018-05-23] MEDS ORDERED: PRED20TA6 PO (12:35)
== END 2018-05-23 12:45 | disposition home or self-care (01) ==
LOC: ER 11:02
DX: R05 Cough (principal); F17.210 Nicotine dependence, cigarettes, uncomplicated
CPT/HCPCS: 71046; 85025; 94640; 96360; 96361; 99284; J7030; J7620; 82040; 82247; 82310; 82374; 82435; 82565; 82947; 84075; 84132; 84155; 84295; 84450; 84460; 84520

== ENCOUNTER 2018-05-26 19:10 | Inpatient (IN) | payer MEDICAID ==
[~2018-05-26] VITALS: Ht 160 cm; Wt 89.8 kg
[~2018-05-26 19:10] MED LIST changes: +BENZ200C15 PO; +MIRT-17 PO; +POTA99TA6 PO
--- NOTE | 2018-05-26 19:19 | ER Report ---
History and Physical Time Seen By MD: 19:19 HPI/ROS CHIEF COMPLAINT: Dyspnea HISTORY OF PRESENT ILLNESS: 43-year-old female patient presents to emergency room with complaint of shortness of breath. Patient states she has not felt well for the past several days. She was seen here in the emergency room 3 days ago and was diagnosed with an upper respiratory infection. She was diagnosed with steroids and cough suppressant. Patient states that she became significantly worse 2 days ago. She states that yesterday she is having hard time breathing. She states she has had fevers ranging from 99.8-105.2. She states that she has not had much of an appetite. She states that she has not been able to do a of hers her normal activities and when she does she feels incredibly lightheaded. Her daughter states that when she went to visit her yesterday she noted that she had a dusky purple in color to her face. Patient states that she spoke with her primary care provider earlier today who prescribed azithromycin for her, of which she has taken her first dose. REVIEW OF SYSTEMS: Respiratory: As noted above Cardiovascular: No chest pain, no palpitations. Gastrointestinal: No vomiting, no abdominal pain. Musculoskeletal: No back pain. Allergies: Coded Allergies: acetaminophen (Verified Allergy, Severe, 02/03/18) kidney and liver failure amoxicillin (Verified Allergy, Intermediate, HIVES, 02/03/18) ibuprofen (Verified Allergy, Intermediate, HIVES, 02/03/18) latex (Verified Allergy, Intermediate, WELTS, 02/03/18) sulfamethoxazole (Verified Allergy, Mild, 02/03/18) trimethoprim (Verified Allergy, Mild, 02/03/18) Penicillins (Verified Allergy, Unknown, 02/03/18) Uncoded Allergies: ALLERGIC TO ANY TOPICAL PATCHES (Allergy, Intermediate, WELTS, 09/01/10) TAPE (Allergy, Mild, 09/01/10) Home Meds Active Scripts Prednisone (PREDNISONE) 20 Mg Tablet, 20 MG PO BID, #10 TAB 0 Refills Prov:LUCRETIA WHYTE 05/23/18 Albuterol Sulfate 90 Mcg/Act (PROAIR HFA 90 MCG/ACT) 8.5 Gm Hfa.aer.ad, 1-2 PUFF IH 3-4XD, #1 INHALER 0 Refills Prov:LUCRETIA WHYTE-BAL 05/23/18 Benzonatate (BENZONATATE) 200 Mg Capsule, 200 MG PO TID PRN for COUGH, #15 CAP 0 Refills Prov:LUCRETIA WHYTE Dayanna [facility] 05/23/18 Methocarbamol (ROBAXIN-750) 750 Mg Tablet, 750 MG PO TID PRN for MUSCLE SPASMS, #30 TAB 0 Refills Prov:LOIS DIAMOND MD 12/05/16 Reported Medications Oxycodone Hcl (OXYCONTIN) 10 Mg Tab.er.12h, 10 MG PO, TAB 05/23/18 Mirtazapine (REMERON) 15 Mg Tab.rapdis, 15 MG PO 05/23/18 Potassium Gluconate (POTASSIUM) 99 Mg Tablet, PO 05/23/18 Furosemide (FUROSEMIDE) 20 Mg Tablet, 1 TAB PO Q8H, TAB 01/10/18 Pregabalin (LYRICA) 100 Mg Capsule, 100 MG PO TID, CAPSULE 01/10/18 Pantoprazole Sodium (PANTOPRAZOLE SODIUM) 40 Mg Tablet.dr, 40 MG PO QDAY, TAB.SR 10/30/16 Vilazodone Hydrochloride (VIIBRYD) 20 Mg Tablet, 40 MG PO DAILY 10/06/16 Lisinopril (LISINOPRIL) 20 Mg Tablet, 20 MG PO QDAY, TAB 10/06/16 Nebivolol Hcl (BYSTOLIC) 5 Mg Tablet, 5 MG PO QDAY Take one tablet at noon each day. 11/11/15 Amlodipine Besylate (Amlodipine Besylate) 10 Mg Tablet, 1 TAB PO QHS, 0 Refills 03/26/12 Discontinued Reported Medications Eszopiclone (LUNESTA) 3 Mg Tablet, 3 MG PO QHS 10/06/16 Discontinued Scripts Metaxalone (SKELAXIN) 800 Mg Tablet, 800 MG PO PRN, #12 TAB Prov:LUCRETIA WHYTE Dayanna [facility] 01/10/18 Past Medical/Surgical History Patient has a past medical history of migraines, chronic tachycardia, angina, hypertension, hyperlipidemia, oxygen at home 2 L via nasal cannula, asthma, pneumonia, reflux, frequent UTI, cervical cancer, bursitis, fibromyalgia, fractures to ribs, toes, back, back pain, hypoglycemia, anemia, basal cell carcinoma, depression. Patient has a surgical history of basal cell carcinoma removed from face, T7-L3 rebuild, right knee surgery, tubal ligation, hysterectomy, cholecystectomy, appendectomy. Patient has a family medical history of diabetes, stroke, CAD, cancer. Reviewed Nurses Notes: Yes Hx Smoking: Yes (1/3PPD) Smoking Status: Current: Every Day Smoker Exposure to Second Hand Smoke?: Yes Hx Substance Use Disorder: No Hx Alcohol Use: No Constitutional Vital Sign - Last 24 Hours 05/26/18 05/26/18 05/26/18 05/26/18 19:10 19:16 19:17 19:20 Temp 98.0 Pulse ??? 81 Resp 23 B/P (MAP) 107/77 (87) 107/77 Pulse Ox 50 O2 Delivery Room Air O2 Flow Rate 15.0 05/26/18 05/26/18 05/26/18 05/26/18 19:28 19:30 19:40 19:55 Pulse 80 Resp 17 B/P (MAP) 108/83 (91) Pulse Ox 95 95 O2 Delivery Oxy Mask O2 Flow Rate 15.0 12.0 05/26/18 05/26/18 05/26/18 05/26/18 19:55 20:01 20:08 20:10 Pulse 79 80 83 Resp 20 20 24 B/P (MAP) 117/59 (78) Pulse Ox 92 05/26/18 05/26/18 05/26/18 20:30 20:30 20:41 Pulse 94 89 Resp 22 22 Pulse Ox 93 O2 Delivery Oxy Mask O2 Flow Rate 9.0 Physical Exam General Appearance: The patient is alert, has no immediate need for airway protection and no current signs of toxicity. Respiratory: Chest is non tender, lungs are coarse with wheezing to auscultation. Patient had a room air sat of 45% when she arrived on room air. Cardiac: regular rate and rhythm Gastrointestinal: Abdomen is soft and non tender, no masses, bowel sounds normal. Musculoskeletal: Neck: Neck is supple and non tender. Extremities have full range of motion and are non tender. Skin: No rashes or lesions. DIFFERENTIAL DIAGNOSIS: After history and physical exam differential diagnosis was considered for shortness of breath including but not limited to pulmonary infectious process, COPD, asthma, pulmonary embolus and congestive heart failure. Medical Decision Making Data Points Result Diagram: 05/26/18192305/26/181923 Laboratory Hematology Test 05/26/18 19:24 05/26/18 20:00 Red Blood Count 4.30 M/uL (4.17-5.56) Mean Corpuscular Volume 89.4 fL (80.0-96.0) Mean Corpuscular Hemoglobin 30.0 pg (26.0-33.0) Mean Corpuscular Hemoglobin Concent 33.6 g/dL (32.0-36.0) Red Cell Distribution Width 15.7 % (11.5-14.5) Mean Platelet Volume 8.7 fL (7.2-11.1) Neutrophils (%) (Auto) 89.7 % (39.4-72.5) Lymphocytes (%) (Auto) 5.9 % (17.6-49.6) Monocytes (%) (Auto) 3.9 % (4.1-12.4) Eosinophils (%) (Auto) 0.0 % (0.4-6.7) Basophils (%) (Auto) 0.5 % (0.3-1.4) Nucleated RBC Relative Count (auto) 0.1 /100WBC Neutrophils # (Auto) 15.0 K/uL (2.0-7.4) Lymphocytes # (Auto) 1.0 K/uL (1.3-3.6) Monocytes # (Auto) 0.6 K/uL (0.3-1.0) Eosinophils # (Auto) 0.0 K/uL (0.0-0.5) Basophils # (Auto) 0.1 K/uL (0.0-0.1) Nucleated RBC Absolute Count (auto) 0.01 K/uL Sodium Level 136 mmol/L (137-145) Potassium Level 4.5 mmol/L (3.5-5.0) Chloride Level 105 mmol/L (98-107) Carbon Dioxide Level 21 mmol/L (22-31) Blood Urea Nitrogen 31 mg/dl (7-18) Creatinine 1.60 mg/dl (0.52-1.04) Glomerular Filtration Rate Calc 34.9 Random Glucose 147 mg/dl (75-110) Lactate 2.9 mmol/L (0.7-2.1) Calcium Level 9.0 mg/dl (8.4-10.2) Total Bilirubin 0.3 mg/dl (0.2-1.3) Aspartate Amino Transf (AST/SGOT) 50 U/L (0-35) Alanine Aminotransferase (ALT/SGPT) 93 U/L (0-56) Alkaline Phosphatase 171 U/L (0-126) Troponin I < 0.012 ng/ml B-Type Natriuretic Peptide 329 pg/ml (0-100) Total Protein 7.8 g/dl (6.3-8.2) Albumin 3.8 g/dl (3.5-5.0) Blood Gas Puncture Site Left radial Blood Gas Patient Temperature 98 DEGREES Arterial Blood pH 7.31 (7.35-7.45) Arterial Blood Partial Pressure CO2 34 mmHg (32-37) Arterial Blood Partial Pressure O2 61 mmHg (60-80) Arterial Blood HCO3 17 mmol/L (20-26) Arterial Blood Oxygen Saturation 89 % (92-100) Arterial Blood Base Excess -9.0 mmol/L Heriberto Test Acceptable Oxygen Liters/Minute 12 lpm Chemistry Test 05/26/18 19:24 05/26/18 20:00 White Blood Count 16.7 k/uL (4.5-11.0) Red Blood Count 4.30 M/uL (4.17-5.56) Hemoglobin 12.9 g/dL (12.0-16.0) Hematocrit 38.5 % (34.0-47.0) Mean Corpuscular Volume 89.4 fL (80.0-96.0) Mean Corpuscular Hemoglobin 30.0 pg (26.0-33.0) Mean Corpuscular Hemoglobin Concent 33.6 g/dL (32.0-36.0) Red Cell Distribution Width 15.7 % (11.5-14.5) Platelet Count 256 K/uL (150-450) Mean Platelet Volume 8.7 fL (7.2-11.1) Neutrophils (%) (Auto) 89.7 % (39.4-72.5) Lymphocytes (%) (Auto) 5.9 % (17.6-49.6) Monocytes (%) (Auto) 3.9 % (4.1-12.4) Eosinophils (%) (Auto) 0.0 % (0.4-6.7) Basophils (%) (Auto) 0.5 % (0.3-1.4) Nucleated RBC Relative Count (auto) 0.1 /100WBC Neutrophils # (Auto) 15.0 K/uL (2.0-7.4) Lymphocytes # (Auto) 1.0 K/uL (1.3-3.6) Monocytes # (Auto) 0.6 K/uL (0.3-1.0) Eosinophils # (Auto) 0.0 K/uL (0.0-0.5) Basophils # (Auto) 0.1 K/uL (0.0-0.1) Nucleated RBC Absolute Count (auto) 0.01 K/uL Glomerular Filtration Rate Calc 34.9 Lactate 2.9 mmol/L (0.7-2.1) Calcium Level 9.0 mg/dl (8.4-10.2) Total Bilirubin 0.3 mg/dl (0.2-1.3) Aspartate Amino Transf (AST/SGOT) 50 U/L (0-35) Alanine Aminotransferase (ALT/SGPT) 93 U/L (0-56) Alkaline Phosphatase 171 U/L (0-126) Troponin I < 0.012 ng/ml B-Type Natriuretic Peptide 329 pg/ml (0-100) Total Protein 7.8 g/dl (6.3-8.2) Albumin 3.8 g/dl (3.5-5.0) Blood Gas Puncture Site Left radial Blood Gas Patient Temperature 98 DEGREES Arterial Blood pH 7.31 (7.35-7.45) Arterial Blood Partial Pressure CO2 34 mmHg (32-37) Arterial Blood Partial Pressure O2 61 mmHg (60-80) Arterial Blood HCO3 17 mmol/L (20-26) Arterial Blood Oxygen Saturation 89 % (92-100) Arterial Blood Base Excess -9.0 mmol/L Heriberto Test Acceptable Oxygen Liters/Minute 12 lpm EKG/Imaging EKG Interpretation 12 lead EKG: Rhythm: normal sinus rhythm with a ventricular rate of 80 bpm [place]: normal QRS: normal ST segments: normal Imaging CT chest without contrast Indication: Dyspnea. Comparison: None available Technique: Axial CT images are obtained through the chest without administration of IV contrast. One of the following dose optimization techniques was utilized in the p erformance of this exam: Automated exposure control; adjustment of the mA and/or kV according to the patient's size; or use of an iterative reconstruction technique. Specific details can be referenced in the facility's radiology CT exam operational policy.Reformatted coronal and sagittal images were reviewed. Findings: Heart is normal size without pericardial effusion. The aorta shows minimal atherosclerotic calcific changes without aneurysm. The pulmonary arteries are grossly normal. Mediastinum and hilar regions show a few small lymph nodes. No enlarged lymph nodes or abnormal density. The lungs show bilateral patchy interstitial and alveolar infiltrates scattered throughout the lungs without focal dense consolidation. No pneumothorax or pleural effusion. No discrete nodule. Airways are clear. Bony structures show no acute fractures or aggressive bony lesions. Degenerative change seen spine. There is wedging of the T11-T12 vertebral bodies causing kyphosis. This is unchanged from the chest x-ray on 05/23/2018 and to 21/10/2017. Chest wall shows no enlarged axillary lymph nodes or masses. Limited views of the upper abdomen are unremarkable. IMPRESSION: 1. Bilateral patchy scattered interstitial and alveolar infiltrates are nonspecific and could be secondary to acute pneumonitis from infectious causes including atypical or inflammatory process. 2. Other chronic stable findings as above. Report Dictated By: Benjamin Lopez at 05/26/2018 8:45 PM Report E-Signed By: Benjamin Lopez at 05/26/2018 8:56 PM ED Course/Re-evaluation ED Course Patient is admitted and examined, history and physical were obtained. Differential diagnoses were considered. On examination lungs are coarse with wheezing throughout. Patient was 45% on room air when she arrived in the emergency room. She is placed on nonrebreather was able to get up to 99-100%. Given able to switch her over to an oxymask mask at 8 L she is staying at 93- 95%. A CBC, CMP, lactate, EKG, troponin, BMP, blood cultures 2 were done. Patient had a negative troponin, lactate was 2.9, white count was 16.[address] scan of the chest shows what appear to be a multifocal pneumonia. I discussed case with Dr. Amador, shreyas, he agreed to accept the patient for admission. We did discuss antibiotic options and we will go ahead and give her a dose of Rocephin as she has received her first dose of azithromycin today. I discussed with patient. She is initially very hesitant about being admitted she is taken care of her dogs. She ultimately did decide to be admitted to the hospital. Decision to Disposition Date: May 26, 2018 Decision to Disposition Time: 20:51 Depart Departure Latest Vital Signs Vital Signs Date Time Temp Pulse Resp B/P (MAP) Pulse Ox O2 Delivery O2 Flow Rate FiO2 05/26/18 20:41 89 22 05/26/18 20:30 93 Oxy Mask 9.0 05/26/18 20:01 117/59 (78) 05/26/18 19:17 98.0 Impression: Primary Impression: Community acquired pneumonia Additional Impression: Acute renal failure Condition: Improved Disposition: Admitted from ER Referrals: MARTIN BAUMANN DO (PCP) Problem Qualifiers Primary Impression: Community acquired pneumonia Laterality: unspecified laterality Qualified Codes: J18.9 - Pneumonia, unspecified organism Additional Impression: Acute renal failure Acute renal failure type: unspecified Qualified Codes: N17.9 - Acute kidney failure, unspecified SANDRO JEFFRIES RADIO FREQUENCY ENGINEER May 26, 2018 19:19
[2018-05-26] MEDS ORDERED: methylPREDNIS SUCC 125 MG/2ML IVP ONE (19:25)
[2018-05-26] MEDS ORDERED: NS(*) 0.9% 500 ML BAG 500 ML IV ONE (19:25)
[2018-05-26] MEDS ORDERED: ALBUTEROL/IPRATROPIUM 3 ML NEB NEB ONE (19:25)
[2018-05-26 19:38] LABS: PLATELET COUNT, AUTOMATED 256 K/uL (150-450)
[2018-05-26] MEDS ORDERED: NS(*) 0.9% 50 ML BAG 0 ML ONE (19:46)
[2018-05-26] MEDS ORDERED: IOPAMIDOL 76% 75 ML INFUS BTL 0 ML ONE (19:46)
--- NOTE | 2018-05-26 20:22 | EKG ---
FACILITY: [facility] - [place] PATIENT NAME: JAKE LAZAR : [id number] MR: [id number] V: [id number] EXAM DATE: ORDERING PHYSICIAN: SANDRO JEFFRIES TECHNOLOGIST: ASH Test Reason : DYSPNEA Blood Pressure : / mmHG Vent. Rate : 080 BPM Atrial Rate : 080 BPM P-R Int : 160 ms QRS Dur : 090 ms QT Int : 352 ms P-R-T Axes : 023 044 026 degrees QTc Int : 405 ms Normal sinus rhythm Normal ECG When compared with ECG of 06-OCT-2016 23:27, T wave amplitude has decreased in Lateral leads Confirmed by SOIBA WADDELL ([id number]) on 05/27/2018 4:50:10 AM Referred By: MERIVN Confirmed By:SOBIA WADDELL
[2018-05-26] MEDS ORDERED: NS(*) 0.9% 1000 ML BAG 1,000 ML IV ONE (20:40)
[2018-05-26] MEDS ORDERED: cefTRIAXone 2 GM VIAL IVP ONE (20:40)
[2018-05-26] MEDS ORDERED: NICOTINE INH SYSTEM 10 MG/INH INH PRN (20:55)
[2018-05-26] MEDS ORDERED: NICOTINE CARTRIDGE 1 EA PO ONE (21:01)
--- NOTE | 2018-05-26 21:01 | RADIOLOGY IMAGING REPORT ---
FACILITY: [facility] - [place] PATIENT NAME: Madhuri Mckeon : 1975 MR: [id number] V: [id number] EXAM DATE: ORDERING PHYSICIAN: SANDRO JEFFRIES TECHNOLOGIST: Location: [facility] [place] Patient: Madhuri Mckeon : 1975 Visit/Account:[id number] Date of Sevice: 05/26/2018 CT chest without contrast Indication: Dyspnea. Comparison: None available Technique: Axial CT images are obtained through the chest without administration of IV contrast. One of the following dose optimization techniques was utilized in the performance of this exam: Autom ated exposure control; adjustment of the mA and/or kV according to the patient's size; or use of an i terative reconstruction technique. Specific details can be referenced in the facility's radiology C T exam operational policy.Reformatted coronal and sagittal images were reviewed. Findings: Heart is normal size without pericardial effusion. The aorta shows minimal atherosclerotic calcific c hanges without aneurysm. The pulmonary arteries are grossly normal. Mediastinum and hilar regions show a few small lymph nodes. No enlarged lymph nodes or abnormal densi ty. The lungs show bilateral patchy interstitial and alveolar infiltrates scattered throughout the lungs without focal dense consolidation. No pneumothorax or pleural effusion. No discrete nodule. Airways a re clear. Bony structures show no acute fractures or aggressive bony lesions. Degenerative change seen spine. T here is wedging of the T11-T12 vertebral bodies causing kyphosis. This is unchanged from the chest x- ray on 05/23/2018 and to 21/10/2017. Chest wall shows no enlarged axillary lymph nodes or masses. Limited views of the upper abdomen are unremarkable. IMPRESSION: 1. Bilateral patchy scattered interstitial and alveolar infiltrates are nonspecific and could be seco ndary to acute pneumonitis from infectious causes including atypical or inflammatory process. 2. Other chronic stable findings as above. Report Dictated By: Benjamin Lopez at 05/26/2018 8:45 PM Report E-Signed By: Benjamin Lopez at 05/26/2018 8:56 PM WSN:[id number]
--- NOTE | 2018-05-26 21:32 | History & Physical ---
History of Present Illness Chief Complaint Shortness of breath. History of Present Illness 43 yr old lady with longstanding COPD who is at this time deciding whether it is more important for her to continue to smoke during her admission for pneumonia or be admitted for treatment of her pneumonia without smoking while in hospital. Recent history from the ER says that she became ill approx. 3+ days ago and was seen in the ER and treated with steroids and symptomatic treatment for respiratory problems and sent home. She continued to feel worse and contacted her primary care physician who started azithromycin today without effect thus far. She presented again to ER this evening with low O2 sats, abnormal CT of chest with patchy, multilobar pneumonia, elevated lactate, acute kidney injury and was recommended for admission due to worsening respiratory status. Long history of COPD due to smoking. Multiple other problems with essentially a positive ROS. She declines to quit smoking due to stress of family situation with mother and siblings. History Other Past Medical Hx No flu or pneumonia vaccines. Home Meds Active Scripts Prednisone (PREDNISONE) 20 Mg Tablet, 20 MG PO BID, #10 TAB 0 Refills Prov:LURCETIA WHYTE [facility]- 05/23/18 Albuterol Sulfate 90 Mcg/Act (PROAIR HFA 90 MCG/ACT) 8.5 Gm Hfa.aer.ad, 1-2 PUFF IH 3-4XD, #1 INHALER 0 Refills Prov:LUCRETIA WHYTE [facility]-BC 05/23/18 Benzonatate (BENZONATATE) 200 Mg Capsule, 200 MG PO TID PRN for COUGH, #15 CAP 0 Refills Prov:LUCRETIA WHYTE [facility]- 05/23/18 Methocarbamol (ROBAXIN-750) 750 Mg Tablet, 750 MG PO TID PRN for MUSCLE SPASMS, #30 TAB 0 Refills Prov:LOIS DIAMOND MD 12/05/16 Reported Medications Oxycodone Hcl (OXYCODONE HCL) 5 Mg Capsule, 10 MG PO Q6H PRN for PAIN, CAPSULE 05/26/18 Oxycodone Hcl (OXYCONTIN) 10 Mg Tab.er.12h, 10 MG PO, TAB 05/23/18 Mirtazapine (REMERON) 15 Mg Tab.rapdis, 15 MG PO 05/23/18 Potassium Gluconate (POTASSIUM) 99 Mg Tablet, PO DAILY 05/23/18 Furosemide (FUROSEMIDE) 20 Mg Tablet, 1 TAB PO DAILY, TAB 01/10/18 Pregabalin (LYRICA) 100 Mg Capsule, 100 MG PO TID, CAPSULE 01/10/18 Pantoprazole Sodium (PANTOPRAZOLE SODIUM) 40 Mg Tablet.dr, 40 MG PO QDAY, TAB.SR 10/30/16 Vilazodone Hydrochloride (VIIBRYD) 20 Mg Tablet, 40 MG PO DAILY 10/06/16 Lisinopril (LISINOPRIL) 20 Mg Tablet, 20 MG PO QDAY, TAB 10/06/16 Nebivolol Hcl (BYSTOLIC) 5 Mg Tablet, 5 MG PO QDAY Take one tablet at noon each day. 11/11/15 Amlodipine Besylate (Amlodipine Besylate) 10 Mg Tablet, 1 TAB PO QHS, 0 Refills 03/26/12 Discontinued Reported Medications Eszopiclone (LUNESTA) 3 Mg Tablet, 3 MG PO QHS 10/06/16 Discontinued Scripts Metaxalone (SKELAXIN) 800 Mg Tablet, 800 MG PO PRN, #12 TAB Prov:LUCRETIA WHYTE [employer] REPRESENTATIVE-BC 01/10/18 Allergies: Coded Allergies: acetaminophen (Verified Allergy, Severe, 02/03/18) kidney and liver failure amoxicillin (Verified Allergy, Intermediate, HIVES, 02/03/18) ibuprofen (Verified Allergy, Intermediate, HIVES, 02/03/18) latex (Verified Allergy, Intermediate, WELTS, 02/03/18) sulfamethoxazole (Verified Allergy, Mild, 02/03/18) trimethoprim (Verified Allergy, Mild, 02/03/18) Penicillins (Verified Allergy, Unknown, 02/03/18) Uncoded Allergies: ALLERGIC TO ANY TOPICAL PATCHES (Allergy, Intermediate, WELTS, 09/01/10) TAPE (Allergy, Mild, 09/01/10) Patient History: Unobtainable due to patient's condition Hx Smoking: Yes () Smoking Status: Current: Every Day Smoker Exposure to Second Hand Smoke?: Yes Caffeine Intake: Coffee, Tea, Soda Caffeine/Cups Per Day: 4 cups daily Hx Alcohol Use: No Hx Substance Use Disorder: Yes Social Drug Use: Former Social Drugs: Marijuana, Meth, Amphetamines Amount Of Social Drug/s Used: DENIES Review of Systems All Systems Reviewed/Normal: Yes, Except as Noted Constitutional: Fever, Weight Loss, Weight Gain, Chills, Night Sweats Neurological: Weakness, Dizziness, Slurred Speech Eyes: No Vision Change, No Loss of Vision, No Photophobia Cardiovascular: Chest Pain, Palpitations Respiratory: Shortness of Breath, Cough, Wheezing Gastrointestinal: Nausea, Vomiting, Diarrhea, Dysphagia, Abdominal Pain Genitourinary: No Dysuria, No Hematuria, No Urinary Incontinence Musculoskeletal: Pain, Sprain, Strain, Impaired Mobility Psychiatric: Depression, Anxiety Exam Vital Signs Vital Signs Date Time Temp Pulse Resp B/P (MAP) Pulse Ox O2 Delivery O2 Flow Rate FiO2 05/26/18 21:20 94 93 05/26/18 20:41 22 05/26/18 20:30 Oxy Mask 9.0 05/26/18 20:01 117/59 (78) 05/26/18 19:17 98.0 General Appearance: Alert, Awake, No Acute Distress, Afebrile ENT: Moist Mucous Membranes, Nasal Mucosa Clear, Oropharynx Clear, Posterior Pharynx Clear Cardiovascular: Regular Rate and Rhythm, Other (S1S2 are soft. No murmur, gallops or rubs.) Respiratory: Other (Bilateral exp wheezing throughout both lungs anterior and posterior. No rubs. No insp wheezes.) GI: Abd Soft and Non-Tender : No CVA Tenderness Extremities: Soft and Non Tender, Warm, Perfused Psych: Alert & Oriented X3, Appropriate Mood & Affect Medical Decision Making Data Points Result Diagram: 05/26/18192305/26/181923 Item Value Date Time Potassium Level 4.5 mmol/L 05/26/181923 Random Glucose 147 mg/dl H 05/26/181923 Lactate 2.9 mmol/L H 05/26/181923 Calcium Level 9.0 mg/dl 05/26/181923 Total Bilirubin 0.3 mg/dl 05/26/181923 Aspartate Amino Transf (AST/SGOT) 50 U/L H 05/26/181923 Alanine Aminotransferase (ALT/SGPT) 93 U/L H 05/26/181923 Alkaline Phosphatase 171 U/L H 05/26/181923 B-Type Natriuretic Peptide 329 pg/ml H 05/26/181923 Troponin I < 0.012 ng/ml 05/26/181923 Total Protein 7.8 g/dl 05/26/181923 Albumin 3.8 g/dl 05/26/181923 Arterial Blood pH 7.31 L 05/26/181999 Arterial Blood Partial Pressure CO2 34 mmHg 05/26/181999 Arterial Blood Partial Pressure O2 61 mmHg 05/26/181999 Arterial Blood HCO3 17 mmol/L L 05/26/181999 Arterial Blood Oxygen Saturation 89 % L 05/26/181999 EKG / Imaging EKG Interpretation Normal resting photo mask cleaner Interpretation: Normal Sinus Rhythm Imaging CT shows multilobar pneumonia. Pre-Admit Course ED Medications Reviewed. Medical Record Review: Yes Assessment and Plan Problems: (1) Community acquired pneumonia Status: Acute Assessment & Plan: CT shows diffuse, patchy pneumonia throughout both lungs. Will start rocephin and azithromycin for antibiotic coverage. IV steroids and po mucinex along with nebs with xopenex. Advised to quit smoking and offered assistance to accomplish this- she refuses. Lactate is elevated but do not feel she is septic in absence of mental status change, respiratory rates of 20- 24/min. Will recheck lactate at 0100 along with BMP. Also offered assistance for stress factors at home and she declines. (2) Acute renal failure Status: Acute Assessment & Plan: Creat up to 1.6 with elevated BUN. This appears to be mainly hydration related and will run NS at 150 cc/hr overnight. Recheck labs in AM. (3) History of chronic back pain Status: Chronic Assessment & Plan: Will continue her lyrica and pain meds with remeron for sleep. I hesitate to use all these drugs but she will leave AMA if we do not provide. (4) HTN (hypertension) Status: Chronic Assessment & Plan: Will hold her diuretic, Ca++ lesly and MATT until BP has improved. It has been running in the 110-120 range. (5) Depression Status: Chronic (6) Tobacco dependence Status: Chronic (7) Opiate dependence, continuous Status: Chronic (8) Fibromyalgia Status: Chronic Time Spent on Plan of Care: > 30 min Copies to: MARTIN BAUMANN DO ; Venous Thromboembolism VTE Risk Physician Assess for VTE Risk: Yes Patient's VTE Risk: High Antithrombotics Is Pt On Any Antithrombotics?: No Exam Sepsis Risk: No Definite Risk Problem Qualifiers (1) Community acquired pneumonia: Laterality: unspecified laterality Qualified Codes: J18.9 - Pneumonia, unspecified organism (2) Acute renal failure: Acute renal failure type: unspecified Qualified Codes: N17.9 - Acute kidney failure, unspecified MIKEY WADDELL MD FACP May 26, 2018 21:32
[2018-05-26 21:45] VITALS: BP 115/72
[2018-05-26] MEDS ORDERED: OXYC5CAP21 PO (22:07)
[2018-05-26] MEDS ORDERED: PREGABALIN 75 MG CAPSULE PO SCH (22:20)
[2018-05-26] MEDS ORDERED: NS(*) 0.9% 1000 ML BAG 1,000 ML IV PRN (22:55)
[2018-05-26] MEDS ORDERED: NS(*) 0.9% 250 ML BAG 250 ML ONE (23:16)
[2018-05-26] MEDS: MIRTAZAPINE 15 MG TAB PO SCH (23:25)
[2018-05-26] MEDS ORDERED: PREGABALIN 50 MG CAPSULE ONE (23:25)
[2018-05-26] MEDS: guaiFENesin 600 MG TABCR PO SCH (23:52)
[2018-05-27] MEDS ORDERED: AZITHROMYCIN(*) 500 MG 500 MG in NS(*) 0.9% 250 ML BAG 250 ML IVPB SCH
[2018-05-27] MEDS: oxyCODONE HCL 5 MG CAP PO SCH ×5 (00:29→23:39)
[2018-05-27 02:02] VITALS: BP 102/59
[2018-05-27] MEDS ORDERED: HYDROCORTISONE 100 MG/2 ML IVP SCH ×2 (04:00)
[2018-05-27 04:12] VITALS: BP 106/74
[2018-05-27 05:54] LABS: PLATELET COUNT, AUTOMATED 199 K/uL (150-450)
[2018-05-27] MEDS ORDERED: LEVALBUTEROL 0.63 MG/3 ML NEB NEB SCH (06:00)
[2018-05-27 07:50] VITALS: BP 106/67
[2018-05-27] MEDS ORDERED: cefTRIAXone 1 GM VIAL IVP SCH ×2 (09:00)
[2018-05-27] MEDS ORDERED: predniSONE 20 MG TAB PO SCH (09:00)
[2018-05-27] MEDS ORDERED: cefTRIAXone(*) 1 GM VIAL 1 GM in NS(*) 0.9% 100 ML ADDVANT BAG 100 ML IVPB SCH (09:00)
[2018-05-27] MEDS: PREGABALIN 50 MG CAPSULE PO SCH ×3 (09:51→20:49)
[2018-05-27] MEDS: guaiFENesin 600 MG TABCR PO SCH ×2 (09:51→20:50)
--- NOTE | 2018-05-27 10:48 | Hospitalist Progress Note ---
Subjective Progress Notes Subjective 43F admitted for COPD exacerbation 2/2 PNA. Mild improvement overnight, still on 7L O2 via NC. She demands to go outside to smoke. Discussed that this is very dangerous and could lead to . She understands the risk and is prepared to sign AMA smoking release. Patient Complains of: Respiratory: Shortness of Breath, Wheezing Physical Exam Vital Signs Date Time Temp Pulse Resp B/P (MAP) Pulse Ox O2 Delivery O2 Flow Rate FiO2 05/27/18 07:57 92 High-Flow Nasal Cannula 7.0 05/27/18 07:50 98.6 69 24 106/67 (80) Intake and Output 05/27/18 06:59 Intake Total 2489 ml Balance 2489 ml Intake IV Total 2489 ml # Voids 1 General Appearance: Alert, Awake, Afebrile Neuro: No Gross deficits Eyes: PERRLA ENT: Normal Cardiovascular: Normal Rhythm & Peripheral Pulses Respiratory: Other (wheezing, on 7L via NC) GI: Soft and Non-Tender Extremities: Soft and Non Tender, Warm, Pulses, Perfused Integumentary: Skin Intact without Lesion / Mass Psych: Alert & Oriented X3 Result Diagram: 05/27/18 0537 05/27/18 0537 Monitor Interpretation: Normal Sinus Rhythm Assessment and Plan Problems: (1) Community acquired pneumonia Status: Acute Assessment & Plan: CT shows diffuse, patchy pneumonia throughout both lungs. Rocephin and azithromycin for antibiotic coverage. Steroids and breathing treatments ordered. Advised to quit smoking and offered assistance to accomplish this- she refuses. Lactate is elevated but do not feel she is septic in absence of mental status change, respiratory rates of 20-24/min. Strongly recommend not going out to smoke, current O2 needs present very high risk of decompensation up to and including , patient demands and accepts all responsibility in leaving hospital. (2) Acute renal failure Status: Acute Assessment & Plan: Creat up to 1.6 with elevated BUN on admission. Resolved. (3) History of chronic back pain Status: Chronic Assessment & Plan: Will continue her lyrica and pain meds with remeron for sleep. Hesitate to use all these drugs but she will leave AMA if we do not pr ovide. (4) HTN (hypertension) Status: Chronic Assessment & Plan: Will hold her diuretic, Ca++ lesly and MATT until BP has improved. It has been running in the 110-120 range. (5) Depression Status: Chronic (6) Tobacco dependence Status: Chronic (7) Opiate dependence, continuous Status: Chronic (8) Fibromyalgia Status: Chronic Exam Sepsis Risk: Severe Sepsis Risk Problem Qualifiers (1) Community acquired pneumonia: Laterality: unspecified laterality Qualified Codes: J18.9 - Pneumonia, unspecified organism (2) Acute renal failure: Acute renal failure type: unspecified Qualified Codes: N17.9 - Acute kidney failure, unspecified WALKER MARTIN DO May 27, 2018 10:48
[2018-05-27] MEDS: ALBUTEROL/IPRATROPIUM 3 ML NEB NEB SCH ×2 (11:11→16:49)
[2018-05-27 11:33] VITALS: BP 118/70
[2018-05-27 11:40] VITALS: Ht 160 cm; Wt 89.8 kg
[2018-05-27] MEDS: VILAZODONE HCL 40 MG TAB PO SCH (16:05)
[2018-05-27] MEDS: ALBUTEROL 2.5 MG/3 ML NEB NEB PRN (19:03)
[2018-05-27 19:08] VITALS: BP 133/80
[2018-05-27] MEDS: MIRTAZAPINE 15 MG TAB PO SCH (20:49)
[2018-05-27 23:36] VITALS: BP 136/80
[2018-05-27] MEDS: AZITHROMYCIN(*) 500 MG 500 MG in NS(*) 0.9% 250 ML BAG 250 ML IVPB SCH (23:39)
[2018-05-28] MEDS ORDERED: AZITHROMYCIN(*) 500 MG 500 MG in NS(*) 0.9% 250 ML BAG 250 ML IVPB SCH
[2018-05-28 03:11] VITALS: BP 150/74
[2018-05-28] MEDS: ALBUTEROL 2.5 MG/3 ML NEB NEB PRN (04:22)
[2018-05-28] MEDS ORDERED: methylPREDNIS SUCC 125 MG/2ML IVP ONE (04:45)
[2018-05-28] MEDS: oxyCODONE HCL 5 MG CAP PO SCH (06:14)
[2018-05-28] MEDS: ALBUTEROL/IPRATROPIUM 3 ML NEB NEB SCH ×3 (06:15→16:50)
[2018-05-28] MEDS ORDERED: CILASTATIN IVPB SCH (06:50)
[2018-05-28] MEDS ORDERED: IMIPENEM IVPB SCH (06:50)
[2018-05-28] MEDS ORDERED: NS 0.9% IVPB SCH (06:50)
[2018-05-28 07:27] VITALS: BP 128/76
[2018-05-28] MEDS: IMIPENEM/CILASTA(*) 500MG VIAL 500 MG in NS(*) 0.9% 100 ML BAG 100 ML IVPB SCH ×3 (08:13→20:01)
--- NOTE | 2018-05-28 08:13 | RADIOLOGY IMAGING REPORT ---
[facility] PATIENT NAME: Madhuri Mckeon : 1975 MR: [id number] V: [id number] EXAM DATE: ORDERING PHYSICIAN: WALKER RIVERS TECHNOLOGIST: Location: [facility] - [place] Patient: Madhuri Mckeon : 1975 Visit/Account:[id number] Date of Sevice: 05/28/2018 Chest single view: HISTORY: Hypoxia. COMPARISON: 05/23/2018, CT scan 05/26/2018 FINDINGS: Frontal view of the chest: Cardiac mediastinal silhouette is within normal limits. There ar e bilateral infiltrates right more extensive than left which are new compared to the previous chest x -ray, similar to the prior CT scan. There is no definite pleural effusion. No pneumothorax. Pulmonary vasculature is normal. IMPRESSION: Bilateral infiltrates right greater than left with little interval change compared to the prior CT scan. Report Dictated By: Irish Cook MD at 05/28/2018 8:08 AM Report E-Signed By: Irish Cook MD at 05/28/2018 8:09 AM WSN:[id number]
[2018-05-28 08:36] LABS: PLATELET COUNT, AUTOMATED 156 K/uL (150-450)
--- NOTE | 2018-05-28 08:36 | Hospitalist Progress Note ---
Subjective Progress Notes Subjective She is currently on BiPAP and seems to be tolerating fairly well. She answers all questions appropriately. Physical Exam Vital Signs Date Time Temp Pulse Resp B/P (MAP) Pulse Ox O2 Delivery O2 Flow Rate FiO2 05/28/18 08:22 92 Bi-PAP 45.0 05/28/18 08:01 100.2 05/28/18 07:27 97 21 128/76 (93) 05/28/18 04:37 7.0 Intake and Output 05/28/18 06:59 Intake Total 1175 ml Balance 1175 ml Intake Oral 500 ml IV Total 675 ml # Voids 3 General Appearance: Other (Appears somewhat somnolent, but she does awaken and answer all questions appropriately) Neuro: Other (moves all four extremities) Cardiovascular: Regular Rate and Rhythm Respiratory: Other (diffuse wheezes throughout all lung colby with rales pr esent in right mid and lower lung colby) GI: Soft and Non-Tender Extremities: Warm, Perfused Result Diagram: 05/27/18 0537 05/27/18 0537 Monitor Interpretation: Normal Sinus Rhythm Assessment and Plan Problems: (1) Community acquired pneumonia Status: Acute Assessment & Plan: CT scan showed diffuse, patchy pneumonia throughout both lungs. She was started on IV Rocephin and azithromycin for antibiotic coverage. IV Steroids and breathing treatments have also ordered. She has been advised to quit smoking and offered assistance to accomplish this, but she has refused. We strongly recommended that she not go out to smoke, as her current O2 needs present very high risk of decompensation up to and including , patient demanded to continue smoking and accepted all responsibility in leaving the floor/hospital to smoke. She appears to have decompensated overnight. She is now requiring BiPAP to maintain adequate oxygenation/ventilation. Will check ABG, CXR, broaden IV antibiotic coverage (Primaxin instead of Rocephin), watch closely. She may need intubation/mechanical ventilation if any further decline. (2) Acute renal failure Status: Acute Assessment & Plan: Creatinine was up to 1.6 on admission. Resolved. (3) History of chronic back pain Status: Chronic Assessment & Plan: Will continue her Lyrica and Remeron for sleep. Change oxycodone to PRN instead of scheduled. Hesitate to use all these drugs, but she will leave AMA if we do not provide. (4) HTN (hypertension) Status: Chronic Assessment & Plan: BPs have been stable off her usual medications. Will hold her diuretic, calcium channel lesly and MATT until BP is consistently elevated. (5) Depression Status: Chronic (6) Tobacco dependence Status: Chronic (7) Opiate dependence, continuous Status: Chronic (8) Fibromyalgia Status: Chronic Exam Sepsis Risk: Sepsis Risk Problem Qualifiers (1) Community acquired pneumonia: Laterality: unspecified laterality Qualified Codes: J18.9 - Pneumonia, unspecified organism (2) Acute renal failure: Acute renal failure type: unspecified Qualified Codes: N17.9 - Acute kidney failure, unspecified LEXY HACKETT MD May 28, 2018 08:36
[2018-05-28] MEDS: VILAZODONE HCL 40 MG TAB PO SCH (08:46)
[2018-05-28] MEDS: PREGABALIN 50 MG CAPSULE PO SCH ×3 (08:46→21:22)
[2018-05-28] MEDS: guaiFENesin 600 MG TABCR PO SCH ×2 (08:46→21:21)
[2018-05-28] MEDS ORDERED: methylPREDNIS SUCC 125 MG/2ML IVP SCH (09:00)
[2018-05-28] MEDS: methylPREDNIS SUCC 125 MG/2ML IVP SCH ×3 (11:10→22:52)
[2018-05-28 11:23] VITALS: BP 115/76
[2018-05-28 14:19] VITALS: BP 126/79
[2018-05-28] MEDS: oxyCODONE HCL 5 MG CAP PO PRN (15:45)
[2018-05-28] MEDS: NS(*) 0.9% 1000 ML BAG 1,000 ML IV PRN (18:10)
[2018-05-28 19:38] VITALS: BP 135/84
[2018-05-28] MEDS: MIRTAZAPINE 15 MG TAB PO SCH (21:21)
[2018-05-28] MEDS: AZITHROMYCIN(*) 500 MG 500 MG in NS(*) 0.9% 250 ML BAG 250 ML IVPB SCH (22:53)
[2018-05-29 00:19] VITALS: BP 144/86
[2018-05-29] MEDS: IMIPENEM/CILASTA(*) 500MG VIAL 500 MG in NS(*) 0.9% 100 ML BAG 100 ML IVPB SCH ×3 (01:55→13:49)
[2018-05-29 03:39] VITALS: BP 163/88
[2018-05-29] MEDS: methylPREDNIS SUCC 125 MG/2ML IVP SCH ×2 (05:17→10:54)
[2018-05-29] MEDS: ALBUTEROL/IPRATROPIUM 3 ML NEB NEB SCH ×2 (05:40→11:33)
[2018-05-29 06:00] LABS: PLATELET COUNT, AUTOMATED 247 K/uL (150-450)
[2018-05-29] MEDS: NS(*) 0.9% 1000 ML BAG 1,000 ML IV PRN (07:02)
[2018-05-29] MEDS: oxyCODONE HCL 5 MG CAP PO PRN ×2 (07:17→13:49)
[2018-05-29 07:22] VITALS: BP 152/84
[2018-05-29] MEDS: VILAZODONE HCL 40 MG TAB PO SCH (08:27)
[2018-05-29] MEDS: guaiFENesin 600 MG TABCR PO SCH (08:27)
[2018-05-29] MEDS: PREGABALIN 50 MG CAPSULE PO SCH ×2 (08:30→13:49)
[2018-05-29] MEDS ORDERED: LISINOPRIL 20 MG TAB PO SCH (09:00)
[2018-05-29] MEDS ORDERED: FUROSEMIDE 20 MG TAB PO SCH (09:00)
--- NOTE | 2018-05-29 09:24 | Hospitalist Progress Note ---
Subjective Progress Notes Subjective She reports that her SOB is improving and that she slept well last night. Physical Exam Vital Signs Date Time Temp Pulse Resp B/P (MAP) Pulse Ox O2 Delivery O2 Flow Rate FiO2 05/29/18 07:22 97.6 67 20 152/84 (106) 94 High-Flow Nasal Cannula 7.0 05/29/18 03:39 40.0 Intake and Output 05/29/18 06:59 Intake Total 1340 ml Balance 1340 ml IV Total 1340 ml # Voids 2 # Bowel Movements 1 General Appearance: Alert, Awake, Other (mild work of breathing) Cardiovascular: Regular Rate and Rhythm Respiratory: Other (Bilateral expiratory wheezing. Moving air to the bases) Result Diagram: 05/29/18 0544 05/29/18 0544 Monitor Interpretation: Normal Sinus Rhythm Assessment and Plan Problems: (1) Community acquired pneumonia Status: Acute Assessment & Plan: CT scan showed diffuse, patchy pneumonia throughout both lungs. She was started on IV Rocephin and azithromycin for antibiotic coverage. Currently, on IV Steroids and breathing treatments. She has been advised to quit smoking and offered assistance to accomplish this, but she has refused. We strongly recommended that she not go out to smoke, as her current O2 needs present very high risk of decompensation up to and including , patient demanded to continue smoking and accepted all responsibility in leaving the floor/hospital to smoke. Because of decompensation concerns, on 05/28, she was switched to Primaxin and Azithromycin. She appears to have recovered. Afebrile for 24 hours, O2 requirement decreasing and WBC is now wnl. She is still wheezy, so will continue current treatment. (2) Acute renal failure Status: Resolved Assessment & Plan: Creatinine was up to 1.6 on admission. Resolved. (3) History of chronic back pain Status: Chronic Assessment & Plan: Will continue her Lyrica and Remeron for sleep. Change oxycodone to PRN instead of scheduled. Hesitate to use all these drugs, but she will leave AMA if we do not provide. (4) HTN (hypertension) Status: Chronic Assessment & Plan: BPs had been stable off her usual medications. BP now elevated, so will restart Lasix, Lisinopril and Amlodipine with parameters. (5) Depression Status: Chronic (6) Tobacco dependence Status: Chronic (7) Opiate dependence, continuous Status: Chronic (8) Fibromyalgia Status: Chronic Exam Sepsis Risk: No Definite Risk Problem Qualifiers (1) Community acquired pneumonia: Laterality: unspecified laterality Qualified Codes: J18.9 - Pneumonia, unspecified organism (2) Acute renal failure: Acute renal failure type: unspecified Qualified Codes: N17.9 - Acute kidney failure, unspecified ED CORDERO MD May 29, 2018 09:24
[2018-05-29] MEDS ORDERED: PRED-1 PO (13:33)
[2018-05-29] MEDS ORDERED: CEF300 PO (13:33)
[2018-05-29] MEDS ORDERED: AZIT-1 PO (13:34)
--- NOTE | 2018-05-29 13:37 | Hospitalist Depart ---
Discharge Summary Reason for Hosp/Final Diag: (1) Left against medical advice Status: Acute Hospital Course & Plan: The patient stated that she had to leave. I told her that because of the severity of the pneumonia, high O2 requirement, and need for IV abx; there is a chance that she could get worse and even . She expressed understanding and still wanted to leave. She is not confused and is able to articulate the medical concerns. (2) Community acquired pneumonia Status: Acute Hospital Course & Plan: She presented with worsening SOB over 2 days and failure with out patient prednisone and azithromycin. CT scan showed diffuse, patchy pneumonia throughout both lungs. WBC and lactate were initially elevated. She was started on IV Rocephin and azithromycin for antibiotic coverage. She was also on IV Steroids and breathing treatments. She has been advised to quit smoking and offered assistance to accomplish this, but she has refused. We strongly recommended that she not go out to smoke, as her current O2 needs present very high risk of decompensation up to and including , patient demanded to continue smoking and accepted all responsibility in leaving the floor/hospital to smoke. Because of decompensation concerns, on 05/28, she was switched to Primaxin and Azithromycin. She appeared to have recovered. Afebrile for 24 hours, O2 requirement decreasing and WBC is now wnl. She is still wheezy and with a high O2 requirement. However, she reported that she wanted to leave. See above. She will be sent home on Omnicef, a prednisone taper and she has been instructed to continue the azithromycin (4 more days) that she was put on previously. She has been told to wear 5 liters of O2 24 hours a day. (3) Acute renal failure Status: Resolved Hospital Course & Plan: Creatinine was up to 1.6 on admission. Resolved. (4) History of chronic back pain Status: Chronic Hospital Course & Plan: Will continue her Lyrica and Remeron for sleep. Changed oxycodone to PRN instead of scheduled. (5) HTN (hypertension) Status: Chronic Hospital Course & Plan: BPs had been stable off her usual medications. BP now elevated, so will restart Lasix, Lisinopril and Amlodipine. (6) Depression Status: Chronic (7) Tobacco dependence Status: Chronic (8) Opiate dependence, continuous Status: Chronic (9) Fibromyalgia Status: Chronic Departure Weight (Pounds): 198 Result Diagram: 05/29/18 0544 05/29/18 0544 Item Value Date Time White Blood Count 16.7 k/uL H 05/26/18 1924 White Blood Count 13.7 k/uL H 05/27/18 0537 White Blood Count 11.2 k/uL H 05/28/18 0808 White Blood Count 8.8 k/uL 05/29/18 0544 Platelet Count 247 K/uL 05/29/18 0544 Platelet Count 156 K/uL 05/28/18 0808 Platelet Count 199 K/uL 05/27/18 0537 Platelet Count 256 K/uL 05/26/18 1924 Neutrophils (%) (Auto) 89.7 % H 05/26/18 192 Neutrophils (%) (Auto) 89.1 % H 05/27/18 0537 Neutrophils (%) (Auto) 89.4 % H 05/28/18 0808 Neutrophils (%) (Auto) 79.8 % H 05/29/18 0544 Arterial Blood pH 7.31 L 05/26/181999 Arterial Blood pH 7.35 05/28/18 0800 Arterial Blood Partial Pressure CO2 43 mmHg H 05/28/18 08 Arterial Blood Partial Pressure CO2 34 mmHg 05/26/181999 Arterial Blood Partial Pressure O2 61 mmHg 05/26/181999 Arterial Blood Partial Pressure O2 69 mmHg 05/28/18 08 Troponin I < 0.012 ng/ml 05/26/181923 B-Type Natriuretic Peptide 329 pg/ml H 05/26/181923 Total Bilirubin 0.3 mg/dl 05/26/181923 Aspartate Amino Transf (AST/SGOT) 50 U/L H 05/26/18 192 Alanine Aminotransferase (ALT/SGPT) 93 U/L H 05/26/18 192 Alkaline Phosphatase 171 U/L H 05/26/184 Lactate 2.9 mmol/L H 05/26/18 192 Creatinine 1.60 mg/dl H 05/26/181923 Blood Urea Nitrogen 31 mg/dl H 05/26/184 Carbon Dioxide Level 21 mmol/L L 05/26/181923 Carbon Dioxide Level 19 mmol/L L 05/27/18 0057 Blood Urea Nitrogen 25 mg/dl H 05/27/18 0057 Creatinine 1.00 mg/dl 05/27/187 Carbon Dioxide Level 22 mmol/L 05/27/18 0537 Blood Urea Nitrogen 21 mg/dl H 05/27/18 0537 Creatinine 0.90 mg/dl 05/27/18536 Creatinine 0.70 mg/dl 05/28/18807 Blood Urea Nitrogen 19 mg/dl H 05/28/1808 Carbon Dioxide Level 23 mmol/L 05/28/18 08 Calcium Level 8.4 mg/dl 05/27/18536 Total Bilirubin 0.1 mg/dl L 05/27/18 05 Aspartate Amino Transf (AST/SGOT) 34 U/L 05/27/1837 Alanine Aminotransferase (ALT/SGPT) 66 U/L H 05/27/18536 Alkaline Phosphatase 134 U/L H 05/27/1837 Lactate 2.6 mmol/L H 05/27/1856 Lactate 1.4 mmol/L 05/27/18536 Influenza Virus Type A (PCR) Negative 05/28/18 0000 Influenza Virus Type B (PCR) Negative 05/28/18 0000 Blood culture with no growth x2 from 05/26/18 SPEC #: [id number] KIRBY: 05/28/18-UNK STATUS: RES REQ #: [id number] RECD: 05/28/[address]: WALKER MARTIN DO SOURCE: SPUTUM EXP ENTR: 05/28/18-[address] [facility] [address]: MARTIN BAUMANN DO SPDESC: MIKEY WADDELL MD FACP ORDERED: CULT SPUTUM/GS COMMENTS: Has specimen been collected/obtained? Y Procedure Result Verified GRAM STAIN Final 05/28/18-0641 MODERATE YEAST FEW GRAM POSITIVE COCCI RARE GRAM POSITIVE RODS RARE EPITHELIAL CELLS FEW WHITE BLOOD CELLS FEW MUCUS SPUTUM CULTURE Preliminary 05/29/18-923 Organism 1 GRAM NEGATIVE SUNSHINE 1+ GROWTH ID AND SENSITIVITY TO FOLLOW Imaging 05/28/18 CXR - Bilateral infiltrates right greater than left with little interval change compared to the prior CT scan. 05/26/[address] - 1. Bilateral patchy scattered interstitial and alveolar infiltrates are nonspecific and could be secondary to acute pneumonitis from inf ectious causes including atypical or inflammatory process. 2. Other chronic stable findings as above. EKG Vent. Rate : 080 BPM Atrial Rate : 080 BPM P-R Int : 160 ms QRS Dur : 090 ms QT Int : 352 ms P-R-T Axes : 023 044 026 degrees QTc Int : 405 ms Normal sinus rhythm Normal ECG When compared with ECG of 06-OCT-2016 23:27, T wave amplitude has decreased in Lateral leads Confirmed by SOBIA WADDELL ([id number]) on 05/27/2018 4:50:10 AM Condition: Improved Discharge: Home Discharge Instructions Home Meds Active Scripts Cefdinir 300 Mg Cap (OMNICEF 300 MG CAP (OR EQUIV)) 300 Mg Cap, 300 MG PO BID, #20 CAP Prov:ED CORDERO MD 05/29/18 Prednisone 10 Mg Tab (PREDNISONE 10 MG TAB) 10 Mg Tablet, 5-30 MG PO BID, #40 TAB 3 pills bid for 3 days, then 2 pills bid for 3 days, then 1 pill bid for 3 days, then 1/2 pill bid for 3 days Prov:ED CORDERO MD 05/29/18 Albuterol Sulfate 90 Mcg/Act (PROAIR HFA 90 MCG/ACT) 8.5 Gm Hfa.aer.ad, 1-2 PUFF IH 3-4XD, #1 INHALER 0 Refills Prov:LUCRETIA WHYTEP- 05/23/18 Benzonatate (BENZONATATE) 200 Mg Capsule, 200 MG PO TID PRN for COUGH, #15 CAP 0 Refills Prov:LUCRETIA WHYTE RECONCILING CLERK-BC 05/23/18 Methocarbamol (ROBAXIN-750) 750 Mg Tablet, 750 MG PO TID PRN for MUSCLE SPASMS, #30 TAB 0 Refills Prov:LOIS DIAMOND MD 12/05/16 Reported Medications Azithromycin (ZITHROMAX) 250 Mg Tablet, 1 TAB PO QDAY, TAB 05/29/18 Oxycodone Hcl (OXYCODONE HCL) 5 Mg Capsule, 10 MG PO Q6H PRN for PAIN, CAPSULE 05/26/18 Oxycodone Hcl (OXYCONTIN) 10 Mg Tab.er.12h, 10 MG PO, TAB 05/23/18 Mirtazapine (REMERON) 15 Mg Tab.rapdis, 15 MG PO 05/23/18 Potassium Gluconate (POTASSIUM) 99 Mg Tablet, PO DAILY 05/23/18 Furosemide (FUROSEMIDE) 20 Mg Tablet, 1 TAB PO DAILY, TAB 01/10/18 Pregabalin (LYRICA) 100 Mg Capsule, 100 MG PO TID, CAPSULE 01/10/18 Pantoprazole Sodium (PANTOPRAZOLE SODIUM) 40 Mg Tablet.dr, 40 MG PO QDAY, TAB.SR 10/30/16 Vilazodone Hydrochloride (VIIBRYD) 20 Mg Tablet, 40 MG PO DAILY 10/06/16 Lisinopril (LISINOPRIL) 20 Mg Tablet, 20 MG PO QDAY, TAB 10/06/16 Nebivolol Hcl (BYSTOLIC) 5 Mg Tablet, 5 MG PO QDAY Take one tablet at noon each day. 11/11/15 Amlodipine Besylate (Amlodipine Besylate) 10 Mg Tablet, 1 TAB PO QHS, 0 Refills 03/26/12 Discontinued Reported Medications Eszopiclone (LUNESTA) 3 Mg Tablet, 3 MG PO QHS 10/06/16 Discontinued Scripts Prednisone (PREDNISONE) 20 Mg Tablet, 20 MG PO BID, #10 TAB 0 Refills Prov:LUCRETIA WHYTE RECONCILING CLERK-BC 05/23/18 Metaxalone (SKELAXIN) 800 Mg Tablet, 800 MG PO PRN, #12 TAB Prov:LUCRETIA WHYTE RECONCILING CLERK-BC 01/10/18 Diet: Regular Activity: As Tolerated Special Instructions: Wear 5 liters of O2 all the time Follow up with PCP in 1-2 weeks and schedule a follow up CXR in 5 weeks Go to the ER for fevers, chills, or worsening SOB Copies to: PRASAD MATIAS MD; MARTIN BAUMANN DO ; Venous Thromboembolism Antithrombotics Is Pt On Any Antithrombotics?: No Problem Qualifiers (1) Community acquired pneumonia: Laterality: unspecified laterality Qualified Codes: J18.9 - Pneumonia, unspecified organism (2) Acute renal failure: Acute renal failure type: unspecified Qualified Codes: N17.9 - Acute kidney failure, unspecified ED CORDERO MD May 29, 2018 13:37
[2018-05-29] MEDS ORDERED: amLODIPine BESYL(*) 5 MG TAB PO SCH (21:00)
== END 2018-05-29 14:59 | disposition left against medical advice (07) | DRG 190 ==
LOC: ER 19:59 → MED 21:01
PROVIDERS: ADMIT Internal Medicine; ATTEND Internal Medicine
PROC: 5A09357 Assistance with Respiratory Ventilation, Less than 24 Consecutive Hours, Continuous Positive Airway Pressure (ICD-10-PCS; principal; 2018-05-26)
DX: J44.0 Chronic obstructive pulmonary disease with (acute) lower respiratory infection (principal); J18.9 Pneumonia, unspecified organism; N17.9 Acute kidney failure, unspecified; F11.20 Opioid dependence, uncomplicated; J44.1 Chronic obstructive pulmonary disease with (acute) exacerbation; G89.29 Other chronic pain; I10 Essential (primary) hypertension; F32.9 Major depressive disorder, single episode, unspecified; F17.210 Nicotine dependence, cigarettes, uncomplicated; M79.7 Fibromyalgia; Z53.29 Procedure and treatment not carried out because of patient's decision for other reasons; E78.5 Hyperlipidemia, unspecified; K21.9 Gastro-esophageal reflux disease without esophagitis; Z88.0 Allergy status to penicillin; Z88.2 Allergy status to sulfonamides; Z91.040 Latex allergy status; Z88.8 Allergy status to other drugs, medicaments and biological substances; Z99.81 Dependence on supplemental oxygen; Z85.41 Personal history of malignant neoplasm of cervix uteri; Z85.828 Personal history of other malignant neoplasm of skin; Z90.710 Acquired absence of both cervix and uterus; Z90.49 Acquired absence of other specified parts of digestive tract
CPT/HCPCS: 36415; 36600; 71045; 71250; 82040; 82247; 82310; 82374; 82435; 82565; 82803; 82947; 83605; 83880; 84075; 84132; 84155; 84295; 84450; 84460; 84484; 84520; 85025; 87040; 87070; 87077; 87186; 87205; 87502; 93005; 94640; 94660; 94667; 94668; J0456; J0696; J0743; J1720; J2930; J7030; J7040; J7050; J7512; J7613; J7614; Q9967

== ENCOUNTER → 2018-06-06 | Outpatient (CLI) | payer MEDICAID ==
[2018-05-27 11:40] VITALS: BMI 35.1
[~2018-06-06] MED LIST changes: +AZIT-1 PO; +CEF300 PO; +OXYC5CAP21 PO; +PRED-1 PO
--- NOTE | 2018-06-06 12:03 | RADIOLOGY IMAGING REPORT ---
FACILITY: [facility] - [place] PATIENT NAME: Madhuri Mckeon : 1975 MR: [id number] V: [id number] EXAM DATE: ORDERING PHYSICIAN: MARTIN BAUMANN TECHNOLOGIST: Location: [facility] [place] Patient: Madhuri Mckeon : 1975 Visit/Account:[id number] Date of Sevice: 06/06/2018 Exam type: CHEST PA AND LAT History: Persistent pneumonia, on oxygen Comparison: May 28, 2018 and May 23, 2018. Findings: There has been marked improvement of the extensive bilateral pulmonary infiltrates when compared to N 2017. Coarse linear stranding in the lung bases likely represents atelectasis although s ubtle residual infiltrates not excluded. There is no evidence of pleural effusions. There is a 1 cm nodule projecting over the medial aspect the left lung base The cardiac silhouette appears stable. There is a severe anterior kyphosis lower thoracic spine secondary to multiple chronic compression fr actures. There are surgical clips in the upper abdomen IMPRESSION: 1. Marked improvement of the extensive bilateral pulmonary infiltrates when compared to May 28, 2018 Small amount linear stranding in the lung bases 80 secondary to atelectasis versus residual infiltrat es There is a 1 cm nodule projecting over the medial aspect the left lung base. Although this could rep resent superimposed shadow short-term interval follow-up recommended with repeat chest or chest CT Report Dictated By: Alysha Peng MD at 06/06/2018 11:56 AM Report E-Signed By: Alysha Peng MD at 06/06/2018 11:59 AM WSN:[id number]
== END ==
LOC: RAD 10:35
PROVIDERS: ATTEND Family Medicine
DX: J18.9 Pneumonia, unspecified organism (principal)
CPT/HCPCS: 71046

== ENCOUNTER → 2018-06-20 | Outpatient (CLI) | payer MEDICAID ==
[2018-05-27 11:40] VITALS: BMI 35.1
--- NOTE | 2018-06-20 12:31 | RADIOLOGY IMAGING REPORT ---
FACILITY: [facility] - [place] PATIENT NAME: Madhuri Mckeon : 1975 MR: [id number] V: [id number] EXAM DATE: ORDERING PHYSICIAN: MARTIN BAUMANN TECHNOLOGIST: [facility] Patient: Madhuri Mckeon : 1975 Visit/Account:[id number] Date of Sevice: 06/20/2018 Chest with lateral, 2 views. HISTORY: Pneumonia. COMPARISON: 06/06/2018. The heart size is normal. Pulmonary vessels are normal. The mediastinum is not widened. Interstitial markings are thickened bilaterally, unchanged. Patchy and streaky densities are present in the right midlung and both lung bases, decreased. No pleural fluid. The bones are osteopenic. Multiple compress ion fractures are present in the thoracolumbar spine resulting in accentuation of the lower thoracic kyphotic curve, unchanged. The abdominal aorta is partially calcified. Surgical clips are present in the right upper abdomen. IMPRESSION: Bilateral lung infiltrates and subsegmental atelectasis, decreased. Report Dictated By: Ulices Augustine MD at 06/20/2018 12:23 PM Report E-Signed By: Ulices Augustine MD at 06/20/2018 12:26 PM WSN:[id number]
== END ==
LOC: RAD 10:45
PROVIDERS: ATTEND Family Medicine
DX: J18.9 Pneumonia, unspecified organism (principal); J98.11 Atelectasis
CPT/HCPCS: 71046

== ENCOUNTER 2018-08-18 00:39 | Inpatient (IN) | payer MEDICAID ==
[2018-08-18] VITALS (14 sets, daily range): BP systolic 108–139; BP diastolic 64–86
[~2018-08-18] VITALS: Ht 160 cm; Wt 89.4 kg
[~2018-08-18 00:39] MED LIST changes: +ATOR20TA22 PO
[2018-08-18] MEDS: NORMOSOL R SOLN(*) 1000 ML BAG 1,000 ML IV PRN ×2 (05:43→10:45)
[2018-08-18] MEDS ORDERED: MIDAZOLAM 2 MG/2 ML VIAL IVP PRN (06:15)
[2018-08-18] MEDS ORDERED: LIDOCAINE/SOD BICARB 8.4% SYR ID ONE (06:15)
[2018-08-18] MEDS ORDERED: CLINDAMYCIN(*) 600 MG/NS 50 ML 50 ML IVPB ONE (06:15)
[2018-08-18] MEDS ORDERED: ROPIVACAINE 0.2% 20 ML VIAL ONE (06:21)
[2018-08-18] MEDS ORDERED: NEOMYCIN/POLYMYX/BACITR 30 GM TP ONE (06:21)
[2018-08-18] MEDS ORDERED: BUPIV/EPI 0.25% 1:200,000 50ML INFIL ONE (06:21)
[2018-08-18] MEDS ORDERED: KETAMINE HCL-NS 50 MG/5 ML SYR ONE (07:00)
[2018-08-18] MEDS ORDERED: fentaNYL CITR 100 MCG/2 ML AMP ONE ×3 (07:00→12:14)
[2018-08-18] MEDS ORDERED: PROPOFOL EMUL(*) 10MG/ML 20 ML 20 ML ONE (07:01)
[2018-08-18] MEDS ORDERED: DEXAMETHASONE SOD PHOS 10MG/ML ONE (07:01)
[2018-08-18] MEDS ORDERED: ONDANSETRON 4 MG/2 ML VIAL ONE (07:01)
[2018-08-18] MEDS ORDERED: LIDOCAINE MPF 1% 5 ML VIAL ONE (07:01)
[2018-08-18] MEDS ORDERED: ePHEDrine 25 MG/5 ML DISP.SYR IVP ONE (07:20)
[2018-08-18] MEDS ORDERED: CLIN300C99 PO (10:16)
--- NOTE | 2018-08-18 10:44 | OPERATIVE REPORT 1 ---
EVENT DATE: August 18, 2018 SURGEON: Benjamin Blackwell MD ANESTHESIOLOGIST: Mathieu Hardy MD ANESTHESIA: General. 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 PROCEDURES PERFORMED 1. Corrective osteotomy of left radius at distal third using iliac crest autograft, 82037. 2. Right thumb first annular stanislaw release, 61504. 3. Intraoperative radiography for joint surface alignment, graft placement and hardware placement, multiple views of the wrist, 53830. ESTIMATED BLOOD LOSS Minimal. IV FLUIDS 1700. TOURNIQUET TIME 105. SPECIMENS None. COMPLICATIONS None. IMPLANTS TriMed 3-hole dorsal pin plate and 5-hole dorsal pin plate. DESCRIPTION OF PROCEDURE The patient was brought into the operating room and placed on the operating table in the supine position. After obtaining adequate general anesthesia, the right and left upper extremities as well as the left iliac crest were prepped and draped in the usual sterile fashion. Starting on the right side, an Esmarch bandage was used for exsanguination and tourniquet. We made a transverse incision in the skin of the thumb deepened through the skin and subcutaneous tissue by blunt longitudinal spreading to expose the thickened A1 stanislaw, which was in turn released, starting with a 15 blade and then completing the release under direct vision with the tenotomy scissors. The wound was irrigated and then we closed with Nylon. We gave a soft dressing and moved to the left side. A dorsal longitudinal incision was made deepened through the skin and subcutaneous tissue. The EPL was radialized on a [place] drain. The ECRL and ECRB were radialized on a Keegan drain and the contents of the fourth dorsal compartment were also radialized but it did not open the fifth or the sixth compartments. The radius was then subperiosteally exposed as was the proximal carpus so we could see the joint line. A guiding K-wire was then placed under fluoroscopic guidance to match the articular margin and once we had the angle of the joint and the position of compression identified we made an osteotomy and completed it with the osteotome. After trialing a couple of different sizes, the 8 mm osteotome seemed to give good correction so we planned out for the iliac crest. We irrigated the wound and then placed a moist dressing while we moved off to the iliac crest for a moment. An incision was made along the iliac crest deepened through the skin and the lumen of the subcutaneous tissue to expose the bone. I created a lateral flap, leaving the inner table intact, and we used the measurements from the wrist to create the bone graft. With this removed, we then brought it back to the other table and used a bur to prepare the surface. I also multiply fenestrated the cortical margin with a K-wire so it would behave a little bit more like cancellous bone. We then placed it into position, placed additional bone graft in its' center, which was harvested from the iliac crest, and then temporarily positioned it with a K-wire run longitudinally. We did two pin plates, one radial and one lateral, from the TriMed System and also used a bur to mill down the bone to appropriate shape. Intraoperative fluoroscopy confirmed the position of hardware and the position of the articular surface. Once complete, the wound was irrigated. We closed the deep fascial tissues to close the capsule with 4-0 FiberWire and then we used FiberWire for the retinaculum, leaving the EPL radialized. Finally, we deflated the tourniquet and then closed the skin with Nylon. She was given a dry sterile dressing with a volar splint on the left side. She was encouraged for active motion on the right and we will do our best to try to get her to stop smoking so that hopefully this could actually heal. LINDSAY
[2018-08-18] MEDS ORDERED: ALBUTEROL/IPRATROPIUM 3 ML NEB ONE (12:56)
--- NOTE | 2018-08-18 13:24 | RADIOLOGY IMAGING REPORT ---
FACILITY: [facility] PATIENT NAME: Madhuri Mckeon : 1975 MR: [id number] V: [id number] EXAM DATE: ORDERING PHYSICIAN: PRASAD MATIAS TECHNOLOGIST: Location: [facility] [place] Patient: Madhuri Mckeon : 1975 Visit/Account:[id number] Date of Sevice: 08/18/2018 Portable chest, one view. HISTORY: Hypoxia. COMPARISON: 06/20/2018. EKG leads project on the chest. The heart is borderline enlarged. Pulmonary vessels are engorged, a ccentuated by a suboptimal inspiration. Interstitial markings are thickened bilaterally. Streaky de nsities are present in the right upper lung and both lung bases, increased. The pleural surfaces are otherwise unremarkable. The bones are partially obscured. IMPRESSION: Underlying congestive heart failure or volume overload. Bilateral subsegmental atelectasis. Superimposed pneumonitis is not excluded. Report Dictated By: Ulices Augustine MD at 08/18/2018 1:17 PM Report E-Signed By: Ulices Augustine MD at 08/18/2018 1:19 PM WSN:[id number]
[2018-08-18] MEDS ORDERED: ONDANSETRON 4 MG/2 ML VIAL IVP PRN (13:50)
[2018-08-18] MEDS ORDERED: MORPHINE SULFATE 30 MG PCA IV PRN (13:50)
[2018-08-18] MEDS ORDERED: diphenhydrAMINE 25 MG CAP PO PRN (13:50)
[2018-08-18] MEDS ORDERED: MAGNESIUM CITRATE 300 ML BTL PO PRN (13:50)
[2018-08-18] MEDS ORDERED: PROMETHAZINE 25 MG/ML 1 ML AMP IVP PRN (13:50)
[2018-08-18] MEDS ORDERED: NALOXONE HCL 0.4 MG/ML VIAL IVP PRN (13:50)
[2018-08-18] MEDS ORDERED: KCL/D5LR 20 MEQ/1000 ML PREMIX 1,000 ML IV PRN (13:50)
[2018-08-18] MEDS ORDERED: FLUSH 10 ML SYR IVP PRN (13:50)
[2018-08-18] MEDS ORDERED: ACETAMINOPHEN 500 MG TAB PO PRN (13:50)
[2018-08-18] MEDS ORDERED: ALBUTEROL 8 GM INHALER INH PRN (15:10)
[2018-08-18] MEDS ORDERED: ALBUTEROL 1.25 MG/3ML NEB NEB PRN (15:25)
--- NOTE | 2018-08-18 15:39 | Hospitalist Consultation ---
History of Present Illness Requesting Physician Dr. Blackwell Reason for Consult Medical Management Chief Complaint s/p osteotomy of the left radius using iliac crest History of Present Illness She was admitted s/p osteotomy of the left radius using iliac crest. It is reported the surgery went well and without complication. The patient arrives to the floor on 9liters of oxygen. She does have a history of asthma. History Problems: (1) Asthma Status: Chronic (2) GERD (gastroesophageal reflux disease) Status: Chronic (3) Hyperlipidemia Status: Chronic (4) HTN (hypertension) Status: Chronic (5) Depression Status: Chronic Home Meds Active Scripts Albuterol Sulfate 90 Mcg/Act (PROAIR HFA 90 MCG/ACT) 8.5 Gm Hfa.aer.ad, 1-2 PUFF IH 3-4XD, #1 INHALER 0 Refills Prov:LUCRETIA WHYTE SENIOR ADMINISTRATIVE ASSISTANT-BC 05/23/18 Methocarbamol (ROBAXIN-750) 750 Mg Tablet, 750 MG PO TID PRN for MUSCLE SPASMS, #30 TAB 0 Refills Prov:LOIS DIAMOND MD 12/05/16 Reported Medications Clindamycin Hcl (CLINDAMYCIN HCL) 300 Mg Capsule, 300 MG PO Q8H, #9 CAPSULE 08/18/18 Atorvastatin Calcium (LIPITOR) 20 Mg Tablet, 1 TAB PO QHS, TAB 08/10/18 Oxycodone Hcl (OXYCODONE HCL) 5 Mg Capsule, 10 MG PO Q6H PRN for PAIN, CAPSULE 05/26/18 Oxycodone Hcl (OXYCONTIN) 10 Mg Tab.er.12h, 10 MG PO, TAB 05/23/18 Mirtazapine (REMERON) 15 Mg Tab.rapdis, 15 MG PO 05/23/18 Potassium Gluconate (POTASSIUM) 99 Mg Tablet, PO DAILY 05/23/18 Furosemide (FUROSEMIDE) 20 Mg Tablet, 1 TAB PO DAILY, TAB 01/10/18 Pregabalin (LYRICA) 100 Mg Capsule, 100 MG PO TID, CAPSULE 01/10/18 Pantoprazole Sodium (PANTOPRAZOLE SODIUM) 40 Mg Tablet.dr, 40 MG PO QDAY, TAB.SR 10/30/16 Vilazodone Hydrochloride (VIIBRYD) 20 Mg Tablet, 40 MG PO DAILY 10/06/16 Lisinopril (LISINOPRIL) 20 Mg Tablet, 20 MG PO QDAY, TAB 10/06/16 Nebivolol Hcl (BYSTOLIC) 5 Mg Tablet, 5 MG PO QDAY Take one tablet at noon each day. 11/11/15 Amlodipine Besylate (Amlodipine Besylate) 10 Mg Tablet, 1 TAB PO QHS, 0 Refills 03/26/12 Allergies: Coded Allergies: amoxicillin (Verified Allergy, Intermediate, HIVES, 02/03/18) ibuprofen (Verified Allergy, Intermediate, HIVES, 02/03/18) latex (Verified Allergy, Intermediate, WELTS, 02/03/18) sulfamethoxazole (Verified Allergy, Mild, 02/03/18) trimethoprim (Verified Allergy, Mild, 02/03/18) Penicillins (Verified Allergy, Unknown, 02/03/18) Uncoded Allergies: ALLERGIC TO ANY TOPICAL PATCHES (Allergy, Intermediate, WELTS, 09/01/10) TAPE (Allergy, Mild, 09/01/10) Patient History: Unobtainable due to patient's condition Hx Smoking: Yes (PD) Smoking Status: Current: Every Day Smoker Exposure to Second Hand Smoke?: Yes Caffeine Intake: Coffee, Tea, Soda Caffeine/Cups Per Day: 4 cups daily Hx Alcohol Use: No Hx Substance Use Disorder: No Social Drug Use: Former Social Drugs: Marijuana, Meth, Amphetamines Amount Of Social Drug/s Used: DENIES History of IV Drug Use: No Review of Systems All Systems Reviewed/Normal: Yes, Except as Noted Exam Vital Signs Vital Signs Date Time Temp Pulse Resp B/P (MAP) Pulse Ox O2 Delivery O2 Flow Rate FiO2 08/18/18 14:30 85 117/73 (88) 91 08/18/18 14:26 Oxy Mask 9.0 08/18/18 14:16 97.3 24 08/18/18 10:27 100.0 General Appearance: No Acute Distress, Afebrile Cardiovascular: Regular Rate and Rhythm Respiratory: Other (shallow respirations, diminished lung sounds) GI: Abd Soft and Non-Tender Psych: Other (very somlonent during exam) Assessment and Plan Problems: (1) Status post osteotomy Status: Acute Assessment & Plan: She was admitted after wrist surgery. She is followed by Dr. Blackwell. (2) HTN (hypertension) Status: Chronic Assessment & Plan: She is on chronic treatment with Amlodipine, Lisinopril, Bystolic and Lasix. Amlodipine, Lisinopril, Bystolic have been restarted with hold parameters. (3) Hyperlipidemia Status: Chronic Assessment & Plan: She is on chronic treatment with Atorvastatin. (4) Asthma Status: Chronic Assessment & Plan: She is on chronic treatment with albuterol inhaler as needed. She will get scheduled and as needed nebulizers and flutter therapy. She is requiring a high amount of oxygen post-operatively. (5) GERD (gastroesophageal reflux disease) Status: Chronic Assessment & Plan: She is on chronic treatment with Protonix. Continue. (6) Depression Status: Chronic Assessment & Plan: She is on chronic treatment with Viibryd. Continue. (7) Opiate dependence, continuous Status: Chronic Assessment & Plan: She has pain contract with Dr. Anderson. Venous Thromboembolism Antithrombotics Is Pt On Any Antithrombotics?: No Exam Sepsis Risk: No Definite Risk Problem Qualifiers (1) HTN (hypertension): Hypertension type: essential hypertension Qualified Codes: I10 - Essential (primary) hypertension BA SALAZAR Aug 18, 2018 15:39
[2018-08-18] MEDS: ALBUTEROL/IPRATROPIUM 3 ML NEB NEB SCH (17:15)
[2018-08-18] MEDS ORDERED: ATORVASTATIN 10 MG TAB PO SCH (21:00)
[2018-08-18] MEDS: PREGABALIN 50 MG CAPSULE PO SCH (21:20)
[2018-08-19 02:23] VITALS: BP 126/71
[2018-08-19] MEDS: ALBUTEROL/IPRATROPIUM 3 ML NEB NEB SCH ×2 (05:09→12:36)
[2018-08-19 06:50] VITALS: BP 129/87
--- NOTE | 2018-08-19 06:50 | Hospitalist Progress Note ---
Subjective Progress Notes Subjective Feels better today with lower O2 requirements. No SOB, cough. Feels she can go home since O2 sats are better. She is usually on O2 hs at 2 L/min and understands the need for continuous O2 for a few days. Physical Exam Vital Signs Date Time Temp Pulse Resp B/P (MAP) Pulse Ox O2 Delivery O2 Flow Rate FiO2 08/19/18 05:15 92 High-Flow Nasal Cannula 2.5 08/19/18 05:15 75 18 08/19/18 02:23 97.7 126/71 (89) 08/18/18 10:27 100.0 Intake and Output 08/19/18 07:00 Intake Total 2550 ml Balance 2550 ml Intake Oral 100 ml IV Total 2450 ml # Voids 2 General Appearance: Alert, Awake, No Acute Distress, Afebrile Cardiovascular: Regular Rate and Rhythm, Other (S1S2 are soft. ) Respiratory: Clear to Auscultation, Other (Good expansion without wheezes or r onchi. ) Psych: Alert & Oriented X3, Appropriate Mood & Affect Assessment and Plan Problems: (1) Status post osteotomy Status: Acute Assessment & Plan: She was admitted after wrist surgery. She is followed by Dr. Blackwell. She will need O2 at 2 L/min continuously for now and will follow up with Dr. Blackwell and Monica to determine when she can go back to her HS O2. (2) HTN (hypertension) Status: Chronic Assessment & Plan: She is on chronic treatment with Amlodipine, Lisinopril, Bystolic and Lasix. Amlodipine, Lisinopril, Bystolic have been restarted with hold parameters. She will resume her usual medication once she gets home. (3) Hyperlipidemia Status: Chronic Assessment & Plan: She is on chronic treatment with Atorvastatin. (4) Asthma Status: Chronic Assessment & Plan: She was requiring a high amount of oxygen post-operatively but now down to 2-2.5 L/min., (5) GERD (gastroesophageal reflux disease) Status: Chronic Assessment & Plan: She is on chronic treatment with Protonix. Continue. (6) Depression Status: Chronic Assessment & Plan: She is on chronic treatment with Viibryd. Continue. (7) Opiate dependence, continuous Status: Chronic Assessment & Plan: She has pain contract with Dr. Anderson. Time Spent on Plan of Care: < 30 min Exam Sepsis Risk: No Definite Risk Problem Qualifiers (1) HTN (hypertension): Hypertension type: essential hypertension Qualified Codes: I10 - Essential (p ty) hypertension MIKEY WADDELL MD FACP Aug 19, 2018 06:50
[2018-08-19] MEDS: PREGABALIN 50 MG CAPSULE PO SCH ×2 (08:47→13:30)
--- NOTE | 2018-08-19 08:47 | NUR ---
Occupational Therapy Impression Pt reporting desire to discharge [facility], reporting no concerns with discharge to OT. Daughter present and assisting with all ADLs. Educated pt on precautions and WB status of each UE. Pt verbalized understanding and (I)ly recalling. Independent bed mobility. Independent toileting. Independent ambulation in room. Min A UB/LB dressing with daughter assisting. SpO2 >88% on 2.5L. Pt ok to discharge when medically appropriate. Occupational Therapy Goals Patient's Goal
[2018-08-19] MEDS ORDERED: NEBIVOLOL HCL 5 MG TAB PO SCH ×2 (09:00→12:00)
[2018-08-19] MEDS ORDERED: LISINOPRIL 20 MG TAB PO SCH (09:00)
[2018-08-19] MEDS ORDERED: PANTOPRAZOLE SOD 40 MG TABEC PO SCH (09:00)
[2018-08-19] MEDS ORDERED: amLODIPine BESYL(*) 5 MG TAB PO SCH ×2 (09:00→21:00)
[2018-08-19] MEDS ORDERED: VILAZODONE HCL 40 MG TAB PO SCH (09:00)
[2018-08-19] MEDS ORDERED: METHOCARBAMOL 500 MG TAB PO ONE (10:25)
[2018-08-19 10:40] VITALS: Ht 160 cm; Wt 89.4 kg
[2018-08-19 12:24] VITALS: BP 128/81
== END 2018-08-19 13:58 | disposition home or self-care (01) | DRG 511 ==
LOC: OR 00:39 → OBSVTOIN 14:10 → MED 14:10
PROVIDERS: ADMIT Orthopaedic Surgery Hand Surgery; ATTEND Orthopaedic Surgery Hand Surgery
PROC: 0LN70ZZ Release Right Hand Tendon, Open Approach (ICD-10-PCS; 2018-08-18)
PROC: 0PSJ04Z Reposition Left Radius with Internal Fixation Device, Open Approach (ICD-10-PCS; principal; 2018-08-18 07:14)
PROC: 0PR Upper Bones, Replacement (ICD-10-PCS; 2018-08-18 07:14)
PROC: 0QB33ZZ Excision of Left Pelvic Bone, Percutaneous Approach (ICD-10-PCS; 2018-08-18 07:14)
DX: S52.502A Unspecified fracture of the lower end of left radius, initial encounter for closed fracture (principal); F11.20 Opioid dependence, uncomplicated; M65.841 Other synovitis and tenosynovitis, right hand; I10 Essential (primary) hypertension; I25.10 Atherosclerotic heart disease of native coronary artery without angina pectoris; K21.9 Gastro-esophageal reflux disease without esophagitis; E78.5 Hyperlipidemia, unspecified; F32.9 Major depressive disorder, single episode, unspecified; J44.9 Chronic obstructive pulmonary disease, unspecified; M81.0 Age-related osteoporosis without current pathological fracture; G47.33 Obstructive sleep apnea (adult) (pediatric); F17.210 Nicotine dependence, cigarettes, uncomplicated; Z88.0 Allergy status to penicillin; Z88.2 Allergy status to sulfonamides; Z91.040 Latex allergy status; Z88.8 Allergy status to other drugs, medicaments and biological substances; Z90.49 Acquired absence of other specified parts of digestive tract; Z90.710 Acquired absence of both cervix and uterus
CPT/HCPCS: 71045; 94640; 94660; 94667; 97165; A4565; C1713; J1100; J2001; J2250; J2405; J2704; J2795; J3010; J3490; J3535

== ENCOUNTER → 2018-09-21 | Outpatient (CLI) | payer MEDICAID ==
[2018-08-19 10:40] VITALS: BMI 34.9
--- NOTE | 2018-09-21 17:28 | RADIOLOGY IMAGING REPORT ---
FACILITY: [facility] [place] PATIENT NAME: Madhuri Mckeon : 1975 MR: [id number] V: [id number] EXAM DATE: ORDERING PHYSICIAN: MARTIN BAUMANN TECHNOLOGIST: Location: [facility] [place] Patient: Madhuri Mckeon : 1975 Visit/Account:[id number] Date of Sevice: 09/21/2018 Left lower extremity venous Doppler duplex ultrasound scan. HISTORY: Left hip pain, left hip surgery five weeks ago. COMPARISON: None. A color flow Doppler duplex ultrasound examination with spectral analysis was performed on the lower extremity. The common femoral vein, superficial femoral vein, and popliteal vein are normal. These ve ssels compress and augment normally. The upper portions of the trifurcation veins are unremarkable. P ortions of the deep veins of the calf are obscured. No intraluminal filling defects are identified to suggest acute thrombus in the deep venous system. A 2.1 cm fluid-filled collection is present in the left popliteal soft tissues. A venous reflux study was not performed at this time. Note that Doppler ultrasound is somewhat insensitive below the knee. IMPRESSION: 2.1 cm Robb's cyst. Negative for acute deep vein thrombosis. Report Dictated By: Ulices Augustine MD at 09/21/2018 5:22 PM Report E-Signed By: Ulices Augustine MD at 09/21/2018 5:24 PM WSN:[email or web address]
== END ==
LOC: US 06:57
PROVIDERS: ATTEND Family Medicine
DX: M71.22 Synovial cyst of popliteal space [Baker], left knee (principal)

== ENCOUNTER 2018-09-27 14:41 | Inpatient (IN) | payer MEDICAID ==
[~2018-09-27] VITALS: Ht 160 cm; Wt 93.0 kg
--- NOTE | 2018-09-27 15:11 | ER Report ---
History and Physical Time Seen By MD: 15:11 Hx. of Stated Complaint: reffered to er by pcp for possible PE. pt had bone graft surgery in [facility], recent US on left leg was negative for dvt. pt having increased sob HPI/ROS CHIEF COMPLAINT: Shortness of breath HISTORY OF PRESENT ILLNESS: 43-year-old female patient presents to emergency room with complaint of shortness of breath. Patient states that she has had this persistent shortness of breath since she had surgery in August. Patient states that she did have improvement in that for approximately one week and then over the last few days things worsen. She states that last night she got see her ecclesiastical leader, after that she was planning on going to work out. She states she felt so short of breath that she was not able to do that. When she went home to get her oxygen she checked her oxygen saturations and found that she was 70% on room air. She put herself on 3 L of oxygen he is able to get herself up to the low 90s. Patient states that she called her primary care provider today and was instructed by his nurse to come to the emergency room for further evaluation. Patient denies any nausea, vomiting or diarrhea. REVIEW OF SYSTEMS: Respiratory: As noted above Cardiovascular: No chest pain, no palpitations. Gastrointestinal: No vomiting, no abdominal pain. Musculoskeletal: No back pain. Allergies: Coded Allergies: amoxicillin (Verified Allergy, Intermediate, HIVES, 02/03/18) ibuprofen (Verified Allergy, Intermediate, HIVES, 02/03/18) latex (Verified Allergy, Intermediate, WELTS, 02/03/18) sulfamethoxazole (Verified Allergy, Mild, 02/03/18) trimethoprim (Verified Allergy, Mild, 02/03/18) Penicillins (Verified Allergy, Unknown, 02/03/18) Uncoded Allergies: ALLERGIC TO ANY TOPICAL PATCHES (Allergy, Intermediate, WELTS, 09/01/10) TAPE (Allergy, Mild, 09/01/10) Home Meds Active Scripts Albuterol Sulfate 90 Mcg/Act (PROAIR HFA 90 MCG/ACT) 8.5 Gm Hfa.aer.ad, 1-2 PUFF IH 3-4XD, #1 INHALER 0 Refills Prov:LUCRETIA WHYTE [employer]-BC 05/23/18 Methocarbamol (ROBAXIN-750) 750 Mg Tablet, 750 MG PO TID PRN for MUSCLE SPASMS, #30 TAB 0 Refills Prov:LOIS DIAMOND MD 12/05/16 Reported Medications Clindamycin Hcl (CLINDAMYCIN HCL) 300 Mg Capsule, 300 MG PO Q8H, #9 CAPSULE 08/18/18 Atorvastatin Calcium (LIPITOR) 20 Mg Tablet, 1 TAB PO QHS, TAB 08/10/18 Oxycodone Hcl (OXYCODONE HCL) 5 Mg Capsule, 10 MG PO Q6H PRN for PAIN, CAPSULE 05/26/18 Oxycodone Hcl (OXYCONTIN) 10 Mg Tab.er.12h, 10 MG PO, TAB 05/23/18 Mirtazapine (REMERON) 15 Mg Tab.rapdis, 15 MG PO 05/23/18 Potassium Gluconate (POTASSIUM) 99 Mg Tablet, PO DAILY 05/23/18 Furosemide (FUROSEMIDE) 20 Mg Tablet, 1 TAB PO DAILY, TAB 01/10/18 Pregabalin (LYRICA) 100 Mg Capsule, 100 MG PO TID, CAPSULE 01/10/18 Pantoprazole Sodium (PANTOPRAZOLE SODIUM) 40 Mg Tablet.dr, 40 MG PO QDAY, TAB.SR 10/30/16 Vilazodone Hydrochloride (VIIBRYD) 20 Mg Tablet, 40 MG PO DAILY 10/06/16 Lisinopril (LISINOPRIL) 20 Mg Tablet, 20 MG PO QDAY, TAB 10/06/16 Nebivolol Hcl (BYSTOLIC) 5 Mg Tablet, 5 MG PO QDAY Take one tablet at noon each day. 11/11/15 Amlodipine Besylate (Amlodipine Besylate) 10 Mg Tablet, 1 TAB PO QHS, 0 Refills 03/26/12 Past Medical/Surgical History Patient has a past medical history of migraines, chronic tachycardia, angina, irregular heartbeat, hypertension, hyperlipidemia, asthma, pneumonia, reflux, cholecystitis, cervical cancer, frequent UTI, endometriosis, bursitis, arthritis, fibromyalgia, degenerative disc disease, fractures of ribs, toes, back, hypoglycemia, anemia, skin cancer, depression, suicide attempt. Patient has a surgical history of appendectomy, cholecystectomy, hysterectomy, tubal ligation, back surgery 2, right knee surgery, basal cell skin cancer removed. Patient has a family medical history of cancer, CAD, stroke, diabetes, psychia tric problems. Reviewed Nurses Notes: Yes Hx Smoking: Yes (1/3PPD) Smoking Status: Current: Every Day Smoker Exposure to Second Hand Smoke?: Yes Hx Substance Use Disorder: No Hx Alcohol Use: No Constitutional Vital Sign - Last 24 Hours 09/27/18 09/27/18 09/27/18 09/27/18 14:49 15:00 15:30 15:30 Temp 97.9 Pulse 76 80 69 Resp 20 16 11 B/P (MAP) 94/48 71/38 (49) Pulse Ox 90 85 89 O2 Delivery Nasal Cannula O2 Flow Rate 3.0 09/27/18 09/27/18 09/27/18 16:00 16:34 16:36 Pulse 65 Resp 14 B/P (MAP) 88/59 (69) 94/48 (63) 93/47 (62) Pulse Ox 88 Physical Exam General Appearance: The patient is alert, has no immediate need for airway protection and no current signs of toxicity. Respiratory: Chest is non tender, lungs are diminished throughout to auscultation. Cardiac: regular rate and rhythm Gastrointestinal: Abdomen is soft and non tender, no masses, bowel sounds normal. Musculoskeletal: Neck: Neck is supple and non tender. Extremities have full range of motion and are non tender. Left wrist is in a cast. Skin: No rashes or lesions. DIFFERENTIAL DIAGNOSIS: After history and physical exam differential diagnosis was considered for shortness of breath including but not limited to pulmonary infectious process, COPD, asthma, pulmonary embolus and congestive heart failure. Medical Decision Making Data Points Result Diagram: 09/27/18 1528 09/27/18 1528 Laboratory Hematology Test 09/27/18 00:00 09/27/18 15:28 Acetaminophen Level < 10 ug/ml Red Blood Count 4.77 M/uL (4.17-5.56) Mean Corpuscular Volume 85.8 fL (80.0-96.0) Mean Corpuscular Hemoglobin 28.8 pg (26.0-33.0) Mean Corpuscular Hemoglobin Concent 33.6 g/dL (32.0-36.0) Red Cell Distribution Width 15.8 % (11.5-14.5) Mean Platelet Volume 9.2 fL (7.2-11.1) Neutrophils (%) (Auto) 48.0 % (39.4-72.5) Lymphocytes (%) (Auto) 40.2 % (17.6-49.6) Monocytes (%) (Auto) 6.9 % (4.1-12.4) Eosinophils (%) (Auto) 3.9 % (0.4-6.7) Basophils (%) (Auto) 1.0 % (0.3-1.4) Nucleated RBC Relative Count (auto) 0.1 /100WBC Neutrophils # (Auto) 4.2 K/uL (2.0-7.4) Lymphocytes # (Auto) 3.5 K/uL (1.3-3.6) Monocytes # (Auto) 0.6 K/uL (0.3-1.0) Eosinophils # (Auto) 0.3 K/uL (0.0-0.5) Basophils # (Auto) 0.1 K/uL (0.0-0.1) Nucleated RBC Absolute Count (auto) 0.01 K/uL Prothrombin Time 13.0 seconds (12.0-14.4) Prothromb Time International Ratio 0.98 Activated Partial Thromboplast Time 33 seconds (23-35) Sodium Level 135 mmol/L (137-145) Potassium Level 5.0 mmol/L (3.5-5.0) Chloride Level 101 mmol/L (98-107) Carbon Dioxide Level 25 mmol/L (22-31) Blood Urea Nitrogen 50 mg/dl (7-18) Creatinine 2.50 mg/dl (0.52-1.04) Glomerular Filtration Rate Calc 20.8 Random Glucose 112 mg/dl (75-110) Calcium Level 9.1 mg/dl (8.4-10.2) Total Bilirubin 0.4 mg/dl (0.2-1.3) Aspartate Amino Transf (AST/SGOT) 112 U/L (0-35) Alanine Aminotransferase (ALT/SGPT) 113 U/L (0-56) Alkaline Phosphatase 243 U/L (0-126) Troponin I < 0.012 ng/ml Total Protein 7.5 g/dl (6.3-8.2) Albumin 4.1 g/dl (3.5-5.0) Chemistry Test 09/27/18 00:00 09/27/18 15:28 Acetaminophen Level < 10 ug/ml White Blood Count 8.8 k/uL (4.5-11.0) Red Blood Count 4.77 M/uL (4.17-5.56) Hemoglobin 13.7 g/dL (12.0-16.0) Hematocrit 40.9 % (34.0-47.0) Mean Corpuscular Volume 85.8 fL (80.0-96.0) Mean Corpuscular Hemoglobin 28.8 pg (26.0-33.0) Mean Corpuscular Hemoglobin Concent 33.6 g/dL (32.0-36.0) Red Cell Distribution Width 15.8 % (11.5-14.5) Platelet Count 271 K/uL (150-450) Mean Platelet Volume 9.2 fL (7.2-11.1) Neutrophils (%) (Auto) 48.0 % (39.4-72.5) Lymphocytes (%) (Auto) 40.2 % (17.6-49.6) Monocytes (%) (Auto) 6.9 % (4.1-12.4) Eosinophils (%) (Auto) 3.9 % (0.4-6.7) Basophils (%) (Auto) 1.0 % (0.3-1.4) Nucleated RBC Relative Count (auto) 0.1 /100WBC Neutrophils # (Auto) 4.2 K/uL (2.0-7.4) Lymphocytes # (Auto) 3.5 K/uL (1.3-3.6) Monocytes # (Auto) 0.6 K/uL (0.3-1.0) Eosinophils # (Auto) 0.3 K/uL (0.0-0.5) Basophils # (Auto) 0.1 K/uL (0.0-0.1) Nucleated RBC Absolute Count (auto) 0.01 K/uL Prothrombin Time 13.0 seconds (12.0-14.4) Prothromb Time International Ratio 0.98 Activated Partial Thromboplast Time 33 seconds (23-35) Glomerular Filtration Rate Calc 20.8 Calcium Level 9.1 mg/dl (8.4-10.2) Total Bilirubin 0.4 mg/dl (0.2-1.3) Aspartate Amino Transf (AST/SGOT) 112 U/L (0-35) Alanine Aminotransferase (ALT/SGPT) 113 U/L (0-56) Alkaline Phosphatase 243 U/L (0-126) Troponin I < 0.012 ng/ml Total Protein 7.5 g/dl (6.3-8.2) Albumin 4.1 g/dl (3.5-5.0) Coagulation Test 09/27/18 15:28 Prothrombin Time 13.0 seconds Prothromb Time International Ratio 0.98 Activated Partial Thromboplast Time 33 seconds Toxicology Test 09/27/18 00:00 Acetaminophen Level < 10 ug/ml EKG/Imaging EKG Interpretation 12 lead EKG: Rhythm: normal sinus rhythm [place]: normal QRS: normal ST segments: normal Imaging X-ray: Two-view chest x-ray was obtained. I viewed the images myself on the PACS system. My interpretation of the images is: Negative for acute cardiopulmonary processes. The radiologist interpretation is pending at the time of this dictation. ED Course/Re-evaluation ED Course Patient was admitted and examined, history and physical were obtained. Differential diagnoses were considered. On examination lungs are diminished, heart is regular, abdomen soft nontender. Due to the recent surgery and concern about possible blood clot a CT pulmonary angiogram was ordered as well as a CBC and CMP. CBC showed no elevated white count. CMP showed a dramatic increase in her creatinine from 0.7, which is normal to 2.5. Her BUN is also up to 50. With her GFR being 20 we not able to do the CT pulmonary angiogram. However with her having acute renal failure episode I believe patient needs to be admitted to hospital. I discussed the findings with patient. I discussed I did want to have her admitted to the hospital. She states that she would have to find somebody to watch her dogs. Patient was able to find somebody to take care of her dogs. Patient was started on IV fluids. I discussed the case with Dr. Webster, hospitalist, who requested that we get a urinalysis, a random urine creatinine, random urine sodium and a chest x-ray. Those were ordered. The chest x-ray at the time this dictation has not been read by radiology, however did show no acute cardiopulmonary processes on my evaluation. Patient will be admitted to the hospital with diagnosis of acute renal failure. Patient verbalized understanding and agreement with plan. Decision to Disposition Date: Sep 27, 2018 Decision to Disposition Time: 16:56 Depart Departure Latest Vital Signs Vital Signs Date Time Temp Pulse Resp B/P (MAP) Pulse Ox O2 Delivery O2 Flow Rate FiO2 09/27/18 16:36 93/47 (62) 09/27/18 16:00 65 14 88 09/27/18 15:30 3.0 09/27/18 14:49 97.9 Nasal Cannula Impression: Primary Impression: Acute renal failure Additional Impression: Shortness of breath Condition: Condition Unchanged Disposition: Admitted from ER Referrals: MARTIN BAUMANN DO (PCP) Problem Qualifiers Primary Impression: Acute renal failure Acute renal failure type: unspecified Qualified Codes: N17.9 - Acute kidney failure, unspecified SANDRO JEFFRIES [employer] Sep 27, 2018 15:11
[2018-09-27] MEDS ORDERED: NS 0.9% 25 ML BAG 0 ML ONE (15:36)
[2018-09-27] MEDS ORDERED: IOPAMIDOL 76% 150 ML INFUS BTL 0 ML ONE (15:36)
--- NOTE | 2018-09-27 15:53 | EKG ---
FACILITY: [facility] - [place] PATIENT NAME: JAKE LAZAR : [id number] MR: [id number] V: [id number] EXAM DATE: ORDERING PHYSICIAN: SANDRO JEFFRIES TECHNOLOGIST: DEB Test Reason : SOB Blood Pressure : / mmHG Vent. Rate : 067 BPM Atrial Rate : 067 BPM P-R Int : 182 ms QRS Dur : 090 ms QT Int : 384 ms P-R-T Axes : 013 030 032 degrees QTc Int : 405 ms Normal sinus rhythm Normal ECG When compared with ECG of 26-MAY-2018 19:41, No significant change was found Confirmed by Fred Lares ([id number]) on 09/27/2018 4:47:10 PM Referred By: THMO Confirmed By:Fred Wade
[2018-09-27 15:56] LABS: PLATELET COUNT, AUTOMATED 271 K/uL (150-450)
[2018-09-27 16:04] LABS: INR 0.98
[2018-09-27] MEDS ORDERED: NS(*) 0.9% 1000 ML BAG 1,000 ML IV ONE ×2 (16:20→20:30)
[2018-09-27 17:20] VITALS: BP 101/80
[2018-09-27] MEDS ORDERED: oxyCODONE HCL 5 MG CAP PO PRN (17:35)
[2018-09-27] MEDS ORDERED: FLUSH 10 ML SYR IVP PRN (17:45)
--- NOTE | 2018-09-27 17:48 | NUR ---
Initial assessment charted under Adri Love RN account by John Harrington RN.
[2018-09-27] MEDS: NS(*) 0.9% 1000 ML BAG 1,000 ML IV PRN (17:58)
[2018-09-27 19:21] VITALS: BP 100/45
[2018-09-27] MEDS ORDERED: diphenhydrAMINE 25 MG CAP PO ONE (20:00)
[2018-09-27] MEDS ORDERED: ALBUTEROL 2.5 MG/3 ML NEB NEB PRN (20:30)
--- NOTE | 2018-09-27 20:33 | RADIOLOGY IMAGING REPORT ---
FACILITY: [facility] - [place] PATIENT NAME: Madhuri Mckeon : 1975 MR: [id number] V: [id number] EXAM DATE: ORDERING PHYSICIAN: SANDRO JEFFRIES TECHNOLOGIST: Location: [facility] Patient: Madhuri Mckeon : 1975 Visit/Account:[id number] Date of Sevice: 09/27/2018 2 VIEWS CHEST INDICATION: Shortness of breath. COMPARISON: 08/18/2018. FINDINGS: Cardiomediastinal silhouette and pulmonary vessels within normal limits. Improved aeration to lungs. No focal area of consolidation. There is no pneumothorax or pleural effusion. No discrete nodule. Upper abdomen is unremarkable. No acute bony abnormality. The lower thoracic spine does show stable c ompression fractures with kyphosis in this region. IMPRESSION: 1. No acute cardiopulmonary process. Report Dictated By: Benjamin Lopez at 09/27/2018 8:27 PM Report E-Signed By: Benjamin Lopez at 09/27/2018 8:29 PM [id number]
[2018-09-27] MEDS: ATORVASTATIN 10 MG TAB PO SCH (20:48)
[2018-09-27] MEDS: PREGABALIN 50 MG CAPSULE PO SCH (20:48)
--- NOTE | 2018-09-27 20:49 | History & Physical ---
History of Present Illness Chief Complaint TASH History of Present Illness 43F presented after PCP found her to have TASH. PMHx significant for hypoxia, tobacco abuse, HTN, chronic pain. Reports felt more tired over last 2-3 days and felt SOB this am. Has been on O2 since surgery in August, continues to smoke. Reports she had stopped using O2 over last week, unclear if stopped by provider or she decided to stop. On diuretic, MATT, and takes NSAID. Appears given low BP that she is volume down and this precipitated TASH. History Home Meds Active Scripts Albuterol Sulfate 90 Mcg/Act (PROAIR HFA 90 MCG/ACT) 8.5 Gm Hfa.aer.ad, 1-2 PUFF IH 3-4XD, #1 INHALER 0 Refills Prov:LUCRETIA WHYTE EMPLOYEE RELATIONS DIRECTOR-BC 05/23/18 Methocarbamol (ROBAXIN-750) 750 Mg Tablet, 750 MG PO TID PRN for MUSCLE SPASMS, #30 TAB 0 Refills Prov:LOIS DIAMOND MD 12/05/16 Reported Medications Clindamycin Hcl (CLINDAMYCIN HCL) 300 Mg Capsule, 300 MG PO Q8H, #9 CAPSULE 08/18/18 Atorvastatin Calcium (LIPITOR) 20 Mg Tablet, 1 TAB PO QHS, TAB 08/10/18 Oxycodone Hcl (OXYCODONE HCL) 5 Mg Capsule, 10 MG PO Q6H PRN for PAIN, CAPSULE 05/26/18 Oxycodone Hcl (OXYCONTIN) 10 Mg Tab.er.12h, 10 MG PO, TAB 05/23/18 Mirtazapine (REMERON) 15 Mg Tab.rapdis, 15 MG PO 05/23/18 Potassium Gluconate (POTASSIUM) 99 Mg Tablet, PO DAILY 05/23/18 Furosemide (FUROSEMIDE) 20 Mg Tablet, 1 TAB PO DAILY, TAB 01/10/18 Pregabalin (LYRICA) 100 Mg Capsule, 100 MG PO TID, CAPSULE 01/10/18 Pantoprazole Sodium (PANTOPRAZOLE SODIUM) 40 Mg Tablet.dr, 40 MG PO QDAY, TAB.SR 10/30/16 Vilazodone Hydrochloride (VIIBRYD) 20 Mg Tablet, 40 MG PO DAILY 10/06/16 Lisinopril (LISINOPRIL) 20 Mg Tablet, 20 MG PO QDAY, TAB 10/06/16 Nebivolol Hcl (BYSTOLIC) 5 Mg Tablet, 5 MG PO QDAY Take one tablet at noon each day. 11/11/15 Amlodipine Besylate (Amlodipine Besylate) 10 Mg Tablet, 1 TAB PO QHS, 0 Refills 03/26/12 Allergies: Coded Allergies: amoxicillin (Verified Allergy, Intermediate, HIVES, 02/03/18) ibuprofen (Verified Allergy, Intermediate, HIVES, 02/03/18) latex (Verified Allergy, Intermediate, WELTS, 02/03/18) sulfamethoxazole (Verified Allergy, Mild, 02/03/18) trimethoprim (Verified Allergy, Mild, 02/03/18) Penicillins (Verified Allergy, Unknown, 02/03/18) Uncoded Allergies: ALLERGIC TO ANY TOPICAL PATCHES (Allergy, Intermediate, WELTS, 09/01/10) TAPE (Allergy, Mild, 09/01/10) Patient History: Unobtainable due to patient's condition Hx Smoking: Yes (3PPD) Smoking Status: Current: Every Day Smoker Exposure to Second Hand Smoke?: Yes Caffeine Intake: Coffee, Tea, Soda Caffeine/Cups Per Day: 4 cups daily Hx Alcohol Use: No Hx Substance Use Disorder: No Social Drug Use: Former Social Drugs: Marijuana, Meth, Amphetamines Amount Of Social Drug/s Used: DENIES Review of Systems All Systems Reviewed/Normal: Yes, Except as Noted Respiratory: Shortness of Breath Exam Vital Signs Vital Signs Date Time Temp Pulse Resp B/P (MAP) Pulse Ox O2 Delivery O2 Flow Rate FiO2 09/27/18 20:00 91 Nasal Cannula 2.0 09/27/18 19:21 97.6 61 16 100/45 (63) General Appearance: Alert, Awake, No Acute Distress, Afebrile Neuro: No Gross deficits Cardiovascular: Normal Rhythm & Peripheral Pulses Respiratory: No Respiratory Distress GI: Abd Soft and Non-Tender Extremities: Soft and Non Tender, Warm, Pulses, Perfused Medical Decision Making Data Points Result Diagram: 09/27/18 1528 09/27/18 1528 Assessment and Plan Problems: (1) Acute renal failure Status: Resolved Assessment & Plan: FENa 0.4, appears to be prerenal due to NSAID, MATT, hypovolemia. Renal US pending. Hold blood pressure medications. Begin IV fluids. (2) Shortness of breath Status: Chronic Assessment & Plan: Unclear etiology, needing about the same as baseline has been for 1 month, CXR no acute pathology. Believe she has underlying COPD which is undiagnosed and likely needs O2 at baseline. Will wean as tolerated. (3) HTN (hypertension) Status: Chronic Assessment & Plan: Hold lisinopril, furosemide, amlodipine. (4) Opiate dependence, continuous Status: Chronic Assessment & Plan: Decrease dose for renal clearance. Venous Thromboembolism Antithrombotics Is Pt On Any Antithrombotics?: Yes (SCD only due to renal function.) Exam Sepsis Risk: No Definite Risk Problem Qualifiers (1) Acute renal failure: Acute renal failure type: unspecified Qualified Codes: N17.9 - Acute kidney failure, unspecified WALKER MARTIN DO Sep 27, 2018 20:49
--- NOTE | 2018-09-27 22:25 | NUR ---
This is nurse noted medicine bottles in patients personal belongings. Patient stated she "had to keep them with me so they don't get stolen, I don't keep them at home." Refused to send to pharmacy and stated "unable to send home with family as they had already left." Educated patient on not taking home medications while in the hospital, patient stated understanding and that she would not take any home medications that she had with her.
[2018-09-28] MEDS: NS(*) 0.9% 1000 ML BAG 1,000 ML IV PRN ×2 (01:57→12:07)
[2018-09-28 03:36] VITALS: BP 102/61
[2018-09-28 08:37] VITALS: Ht 160 cm; Wt 93.0 kg
[2018-09-28] MEDS: PREGABALIN 50 MG CAPSULE PO SCH ×3 (09:30→20:25)
[2018-09-28 09:31] VITALS: BP 97/63
--- NOTE | 2018-09-28 10:27 | Hospitalist Progress Note ---
Subjective Progress Notes Subjective She reports no further dizziness/lightheadedness. Physical Exam Vital Signs Date Time Temp Pulse Resp B/P (MAP) Pulse Ox O2 Delivery O2 Flow Rate FiO2 09/28/18 09:31 97.6 68 12 97/63 (74) 92 Nasal Cannula 2.0 Intake and Output 09/28/18 06:59 Intake Total 2520 ml Balance 2520 ml Intake Oral 720 ml IV Total 1800 ml # Voids 2 General Appearance: Alert, Awake Cardiovascular: Regular Rate and Rhythm Respiratory: Clear to Auscultation GI: Soft and Non-Tender Extremities: Warm, Perfused Result Diagram: 09/27/18 1528 09/28/18 0528 Assessment and Plan Problems: (1) Acute renal failure Status: Resolved Assessment & Plan: Appears to be prerenal, due to hypovolemia and complicated by NSAID and MATT inhibitor use. Renal US prelim report is unremarkable. Continue IV fluids. Will continue to hold blood pressure medications as well. (2) Shortness of breath Status: Chronic Assessment & Plan: Unclear etiology. CXR no acute pathology. Believe she has underlying COPD which has been undiagnosed and likely needs O2 at baseline. Will wean as tolerated. (3) HTN (hypertension) Status: Chronic Assessment & Plan: Hold lisinopril, furosemide, amlodipine. (4) Opiate dependence, continuous Status: Chronic Assessment & Plan: Will continue with her usual regimen at this time. Exam Sepsis Risk: No Definite Risk Problem Qualifiers (1) Acute renal failure: Acute renal failure type: unspecified Qualified Codes: N17.9 - Acute kidney failure, unspecified LEXY HACKETT MD Sep 28, 2018 10:27
--- NOTE | 2018-09-28 11:25 | RADIOLOGY IMAGING REPORT ---
FACILITY: [facility] - [place] PATIENT NAME: Madhuri Mckeon : 1975 MR: [id number] V: [id number] EXAM DATE: ORDERING PHYSICIAN: WALKER RIVERS TECHNOLOGIST: Location: [facility] Patient: Madhuri Mckeon : 1975 Visit/Account:[id number] Date of Sevice: 09/27/2018 KIDNEYS HISTORY: TASH EXAMINATION: Renal ultrasound HISTORY: Acute renal insufficiency COMPARISON: None. FINDINGS: Kidneys: Right kidney- 9.8 x 4.8 x 5.4 cm. No renal mass lesions. No increased cortical echogenicity or denisha ical atrophy. No hydronephrosis. Left kidney- 10.9 x 5.6 x 5.0 cm. No cortical mass lesions. No hydronephrosis. Renal cortex witho ut atrophy or increased echogenicity. Uniform and symmetric blood flow in each kidney by Doppler ultrasound. Resistive indices of both kid neys were 0.78. Hydronephrosis: No hydronephrosis Bladder: No acute bladder pathology. Bilateral ureteral jets noted. Abdominal aorta and IVC: patent by Doppler ultrasound. IMPRESSION: 1. No obvious acute renal pathology. Minimal increase in resistive indices in both kidneys. Report Dictated By: Crescencio Clark MD at 09/28/2018 11:16 AM Report E-Signed By: Crescencio Clark MD at 09/28/2018 11:19 AM [email or web address]
[2018-09-28] MEDS: oxyCODONE HCL 5 MG CAP PO PRN ×2 (14:01→20:26)
[2018-09-28 16:47] VITALS: BP 102/88
[2018-09-28 19:26] VITALS: BP 101/51
[2018-09-28] MEDS: ATORVASTATIN 10 MG TAB PO SCH (20:25)
[2018-09-28] MEDS ORDERED: MIRTAZAPINE 15 MG PO SCH (21:00)
[2018-09-29 03:58] VITALS: BP 110/79
[2018-09-29] MEDS: oxyCODONE HCL 5 MG CAP PO PRN (04:00)
[2018-09-29 05:56] LABS: PLATELET COUNT, AUTOMATED 196 K/uL (150-450)
[2018-09-29 07:03] VITALS: BP 114/60
[2018-09-29] MEDS: PREGABALIN 50 MG CAPSULE PO SCH (09:00)
--- NOTE | 2018-09-29 09:05 | NUR ---
pt left facility AMA while refusing to sign AMA papers at 0904. During rounds, provider stated pt could be discharged. pt felt she had waited for two hours and was not willing to wait any longer. Before this occurrence, this RN explained that once the doctor was finished rounding he would be able to finish the pt's discharge in order to go. This RN prepped the pt for discharge, while trying to diffuse the situation. While passing medications and preparing another patient for discharge the pt stormed down to the nurses station because she felt she was being "ignored." This RN attempted to call the provider to state pt's wishes and intentions to leave AMA. Before provider could be reached, the pt left the facility.
--- NOTE | 2018-09-29 09:07 | Hospitalist Depart ---
Discharge Summary Reason for Hosp/Final Diag: (1) Acute renal failure Status: Resolved Hospital Course & Plan: Resolved with IV fluids. Her blood pressure medication and NSAIDs were also discontinued. (2) HTN (hypertension) Status: Chronic Hospital Course & Plan: Lisinopril, furosemide, and amlodipine have all been discontinued. (3) Opiate dependence, continuous Status: Chronic Hospital Course & Plan: She is on multiple pain medications. Departure Latest Vital Signs Vital Signs 09/29/18 09/29/18 07:03 08:34 Temp 97.5 Pulse 68 Resp 16 B/P (MAP) 114/60 (78) Pulse Ox 90 O2 Delivery Nasal Cannula O2 Flow Rate 2.0 Weight (Pounds): 205 Result Diagram: 09/29/18 0542 09/29/1842 Condition: Improved Discharge: Home Discharge Instructions Home Meds Active Scripts Albuterol Sulfate 90 Mcg/Act (PROAIR HFA 90 MCG/ACT) 8.5 Gm Hfa.aer.ad, 1-2 PUFF IH 3-4XD, #1 INHALER 0 Refills Prov:LUCRETIA WHYTE GREETING CARD MAKER-BC 05/23/18 Methocarbamol (ROBAXIN-750) 750 Mg Tablet, 750 MG PO TID PRN for MUSCLE SPASMS, #30 TAB 0 Refills Prov:LOIS DIAMOND MD 12/05/16 Reported Medications Atorvastatin Calcium (LIPITOR) 20 Mg Tablet, 1 TAB PO QHS, TAB 08/10/18 Oxycodone Hcl (OXYCODONE HCL) 5 Mg Capsule, 10 MG PO Q6H PRN for PAIN, CAPSULE 05/26/18 Oxycodone Hcl (OXYCONTIN) 10 Mg Tab.er.12h, 10 MG PO, TAB 05/23/18 Mirtazapine (REMERON) 15 Mg Tab.rapdis, 15 MG PO 05/23/18 Pregabalin (LYRICA) 100 Mg Capsule, 100 MG PO TID, CAPSULE 01/10/18 Pantoprazole Sodium (PANTOPRAZOLE SODIUM) 40 Mg Tablet.dr, 40 MG PO QDAY, TAB.SR 10/30/16 Vilazodone Hydrochloride (VIIBRYD) 20 Mg Tablet, 40 MG PO DAILY 10/06/16 Discontinued Reported Medications Clindamycin Hcl (CLINDAMYCIN HCL) 300 Mg Capsule, 300 MG PO Q8H, #9 CAPSULE 08/18/18 Potassium Gluconate (POTASSIUM) 99 Mg Tablet, PO DAILY 05/23/18 Furosemide (FUROSEMIDE) 20 Mg Tablet, 1 TAB PO DAILY, TAB 01/10/18 Lisinopril (LISINOPRIL) 20 Mg Tablet, 20 MG PO QDAY, TAB 10/06/16 Nebivolol Hcl (BYSTOLIC) 5 Mg Tablet, 5 MG PO QDAY Take one tablet at noon each day. 11/11/15 Amlodipine Besylate (Amlodipine Besylate) 10 Mg Tablet, 1 TAB PO QHS, 0 Refills 03/26/12 Diet: Regular Activity: As Tolerated Venous Thromboembolism Antithrombotics Is Pt On Any Antithrombotics?: Yes (SCD only due to renal function.) Problem Qualifiers (1) Acute renal failure: Acute renal failure type: unspecified Qualified Codes: N17.9 - Acute kidney failure, unspecified (2) HTN (hypertension): Hypertension type: essential hypertension Qualified Codes: I10 - Essential (primary) hypertension DEAN RODRIGUEZ DO Sep 29, 2018 09:07
[2018-09-29] MEDS ORDERED: INFLUENZA VIRUS VAC 0.5ML SYR IM ONLY ONE (17:45)
== END 2018-09-29 09:04 | disposition home or self-care (01) | DRG 683 ==
LOC: ER 14:58 → MED 16:56
PROVIDERS: ADMIT Internal Medicine; ATTEND Internal Medicine
DX: N17.9 Acute kidney failure, unspecified (principal); F11.20 Opioid dependence, uncomplicated; I10 Essential (primary) hypertension; K21.9 Gastro-esophageal reflux disease without esophagitis; M79.7 Fibromyalgia; R09.02 Hypoxemia; G89.29 Other chronic pain; J44.9 Chronic obstructive pulmonary disease, unspecified; E78.5 Hyperlipidemia, unspecified; D64.9 Anemia, unspecified; Z88.0 Allergy status to penicillin; Z88.2 Allergy status to sulfonamides; Z91.040 Latex allergy status; Z90.49 Acquired absence of other specified parts of digestive tract; Z90.710 Acquired absence of both cervix and uterus; Z85.828 Personal history of other malignant neoplasm of skin
CPT/HCPCS: 36415; 71046; 76705; 80329; 81001; 82040; 82247; 82310; 82374; 82435; 82565; 82570; 82947; 83735; 83880; 84075; 84132; 84155; 84295; 84300; 84450; 84460; 84484; 84520; 85025; 85610; 85730; 93005; 96360; 99284; J7030; Q9967

== ENCOUNTER 2019-02-02 00:49 | Day surgery (SDC) | payer MEDICAID ==
[2018-09-28 08:37] VITALS: Ht 160 cm; Wt 92.5 kg
[~2019-02-02] VITALS: Ht 160 cm; Wt 92.5 kg
[2019-02-02] VITALS (7 sets, daily range): BP systolic 109–134; BP diastolic 68–92
[~2019-02-02 00:49] MED LIST changes: +DUL100/5PT INH; +NEBI20TA4 PO; +POTA99TA15 PO; -TRAZ50TA34 PO; +TRAZ50TA52 PO
[2019-02-02] MEDS ORDERED: ALBUTEROL/IPRATROPIUM 3 ML NEB ONE (10:36)
[2019-02-02] MEDS ORDERED: CLINDAMYCIN(*) 900 MG/NS 50 ML 50 ML IVPB ONE (11:15)
[2019-02-02] MEDS ORDERED: LIDOCAINE/SOD BICARB 8.4% SYR ID ONE (11:15)
[2019-02-02] MEDS ORDERED: MIDAZOLAM 2 MG/2 ML VIAL IVP PRN (11:15)
[2019-02-02] MEDS ORDERED: NORMOSOL R SOLN(*) 1000 ML BAG 1,000 ML IV PRN (11:15)
[2019-02-02] MEDS ORDERED: fentaNYL CITR 250 MCG/5 ML AMP ONE (11:33)
[2019-02-02] MEDS ORDERED: PROPOFOL EMUL(*) 10MG/ML 20 ML 20 ML ONE (11:33)
[2019-02-02] MEDS ORDERED: LIDOCAINE MPF 1% 5 ML VIAL ONE (11:33)
[2019-02-02] MEDS ORDERED: ONDANSETRON 4 MG/2 ML VIAL ONE (11:33)
[2019-02-02] MEDS ORDERED: DEXAMETHASONE SOD PHOS 10MG/ML ONE (11:33)
[2019-02-02] MEDS ORDERED: LIDOCAINE 2% JELLY 5 ML TUBE ONE (11:34)
[2019-02-02] MEDS ORDERED: ROPIVACAINE 0.2% 20 ML VIAL ONE ×2 (12:10→13:21)
[2019-02-02] MEDS ORDERED: KETAMINE HCL 200 MG/20 ML MDV ONE (12:24)
[2019-02-02] MEDS ORDERED: ePHEDrine 25 MG/5 ML DISP.SYR IVP ONE (12:36)
--- NOTE | 2019-02-02 14:05 | OPERATIVE REPORT 1 ---
EVENT DATE: February 02, 2019 SURGEON: Benjamin Blackwell MD ANESTHESIOLOGIST: Papo Guzman MD ANESTHESIA: General. WREATH INSPECTOR: Alvaro Fairbanks PA-C PREOPERATIVE DIAGNOSIS Right great toe proximal phalanx fracture with split into condyle and extended rotated position. POSTOPERATIVE DIAGNOSIS Right great toe proximal phalanx fracture with split into condyle and extended rotated position. PROCEDURES PERFORMED 1. Closed reduction and percutaneous pinning of right great toe phalanx fracture; 78663 2. Radiographic interpretation two views of foot; 12026 ESTIMATED BLOOD LOSS Minimal. IV FLUIDS 1100 crystalloid, no colloid. TOURNIQUET TIME None. SPECIMENS None. COMPLICATIONS None. IMPLANTS Three 0.045-inch K-wires. DESCRIPTION OF PROCEDURE The patient was brought into the operating room and placed on the OR table in supine position. After obtaining adequate general anesthesia, the right lower extremity was prepped and draped in the usual sterile fashion. No tourniquet was used. I did a reduction maneuver, getting rotation and longitudinal traction, and took an x-ray. We tried several times here but the digit remained relatively extended even though the articular surface could be fairly well reduced. I tried multiple attempts to flex it to try to bring it down into position but it seemed to be in a relatively fixed extended position. I elected to create a metal yoke to allow for stabilization of the articular fracture while still reducing it so I placed a 0.45-inch K-wire subchondral from medial to lateral and then bent both K-wires down into a yoke. These were placed on Ceferino's and then we proceeded to pull them down and longitudinally outward to align the body. While holding it in alignment, I placed three 0.045-inch K- wires, two for the condyles and up into the rest of the proximal phalanx and one longitudinally through the distal phalanx, across the IP joint and into the proximal phalanx to stabilize it. Each was then placed on a Jurgan's ball to protect the tip. We removed the yoke before closure. She was given a dry sterile dressing and a postoperative shoe, a digital block, and was awakened and transferred to the recovery room in stable condition. LINDSAY
[2019-02-02] MEDS ORDERED: LOR5/325 PO (14:11)
[2019-02-02] MEDS ORDERED: CLIN300C99 PO (14:11)
[2019-02-02] MEDS ORDERED: fentaNYL CITR 100 MCG/2 ML AMP ONE (14:37)
[2019-02-02] MEDS ORDERED: APAP/HYDROCODONE 325/5 TAB ONE (15:18)
== END 2019-02-02 15:15 | disposition home or self-care (01) ==
LOC: OR 00:49
PROVIDERS: ATTEND Orthopaedic Surgery Hand Surgery
DX: S92.411A Displaced fracture of proximal phalanx of right great toe, initial encounter for closed fracture (principal); J44.9 Chronic obstructive pulmonary disease, unspecified
CPT/HCPCS: 28496; 94640; J1100; J2001; J2250; J2405; J2704; J2795; J3010; J3490; J7620